=== PATIENT | female | born 1930 | race African-American/Black ===

== ENCOUNTER 2018-06-10 15:00 | Inpatient (IN) | payer MEDICARE ==
[~2018-06-10] VITALS: Ht 157.5 cm; Wt 68.0 kg
[2018-06-10] MEDS ORDERED: IV NORMAL SALINE 500ML BAG 500 ML IV SCH (16:00)
[2018-06-10 16:17] LABS: BILIRUBIN,URINE NEGATIVE (NEG); CLARITY,URINE CLOUDY; COLOR,URINE YELLOW; NITRITE,URINE POSITIVE (NEG); PROTEIN,URINE >=300 mg/dL (NEG-TRACE)
--- NOTE | 2018-06-10 16:31 | EKG ---
[facility] [address] [place] [address] Test Date: 2018-06-10 Test Time: 16:11:44 Pat Name: GAYATHRI ZHANG Department: Room: Gender: F Compliance Auditor: : [id number] Requested By: TONIA COLMENARES Order Number: [id number] Reading MD: Gareth Li MD Measurements Intervals [place] Rate: 73 P: 21 MI: 172 QRS: -4 QRSD: 80 T: 6 QT: 374 QTc: 416 Interpretive Statements SINUS RHYTHM Electronically Signed On 06-14-2018 10:26:11 GUEST [employer]ATIONS [employer]OCIATE by Gareth Li MD
[2018-06-10 16:33] LABS: BASO # 0.1 x10^3/uL (0.0-0.2); BASO % 1 % (0-3); EOS % 0 % (0-3); HEMATOCRIT 40.3 % (36.0-47.0); HEMOGLOBIN 13.4 g/dL (12.0-15.5); LYMPH % 13 % (24-48); MEAN CORPUSCULAR HEMOGLOBIN 29 pg (25-35); MEAN CORPUSCULAR HGB CONC 33 g/dL (31-37); MEAN CORPUSCULAR VOLUME 86 fL (79-100); MONO # 0.6 x10^3/uL (0.0-1.1); MONO % 8 % (0-9); NEUT # 6.1 x10^3uL (1.8-7.7); NEUT % 79 % (31-73); PLATELET COUNT 522 x10^3/uL (140-400); RED BLOOD COUNT 4.69 x10^6/uL (3.50-5.40); RED CELL DISTRIBUTION WIDTH 14.9 % (11.5-14.5); WHITE BLOOD COUNT 7.8 x10^3/uL (4.0-11.0)
[2018-06-10 16:43] LABS: BACTERIA,URINE MANY /HPF (0-FEW); SQUAMOUS EPITHELIAL CELL,UR FEW /LPF; WBC,URINE TNTC /HPF (0-4); YEAST,URINE PRESENT /HPF
[2018-06-10 16:51] LABS: CALCIUM 10.1 mg/dL (8.5-10.1); GFR 63.3; POTASSIUM 4.4 mmol/L (3.5-5.1)
[2018-06-10 16:55] LABS: ALBUMIN 2.6 g/dL (3.4-5.0); ALBUMIN/GLOBULIN RATIO 0.5 (1.0-1.7); MAGNESIUM 1.9 mg/dL (1.8-2.4); TOTAL BILIRUBIN 0.6 mg/dL (0.2-1.0); TOTAL PROTEIN 7.6 g/dL (6.4-8.2)
[2018-06-10] MEDS ORDERED: ACETAMINOPHEN 325 MG TABLET. PO ONE ×2 (17:45)
--- NOTE | 2018-06-10 18:28 | RAD ---
CT head without contrast TECHNIQUE: [address] imaging skull base to vertex. PQRS statement: CT scans at this facility use dose reduction including either automated exposure control, iterative reconstructions, and /or weight based radiation dosing via mA and kV modification when appropriate to reduce radiation dose to as low as reasonably achievable. HISTORY: Fall, head injury. FINDINGS: The exam is motion degraded of both the original as well as repeat acquisition which may decrease sensitivity to detect subtle abnormalities including small hemorrhages or masses. In light of this no intracranial hemorrhage, mass, hydrocephalus or infarction is evident. There is mild generalized brain atrophy. Imaged orbits, mastoids, paranasal sinuses and bones are unremarkable. IMPRESSION: Motion degraded exam as described above. No acute abnormality evident. Electronically signed by: Matthew Freeman MD (06/10/2018 6:23 PM) [facility]
[2018-06-10] MEDS: IV NORMAL SALINE 1000ML BAG 1,000 ML IV SCH (18:29)
--- NOTE | 2018-06-10 18:29 | PHYS DOC ---
Past Medical History Past Medical History: No Pertinent History Past Surgical History: No Surgical History Alcohol Use: None Drug Use: None Adult General Chief Complaint Chief Complaint: WEAKNESS/GENERALIZED HPI HPI Patient is an 88-year-old female who presents with chief complaint of altered mental status. Patient was at home when she tried to stand up off couch and became very weak and fell. Patient reportedly had struck her head but had no loss of consciousness. Family is concerned because they're stating that last night patient was normal but today she is very confused. She does report to some right knee pain. She denies any chest pain or abdominal pain. Patient reportedly has had no vomiting or diarrhea. Review of Systems Review of Systems Constitutional: Denies fever or chills [] Respiratory: Denies cough or shortness of breath [] Cardiovascular: No additional information not addressed in HPI [] GI: Denies abdominal pain, nausea, vomiting, bloody stools or diarrhea [] Musculoskeletal: Positive right knee pain [] Neurologic: Denies headache. Positive mental status changes. [] All other systems were reviewed and found to be within normal limits, except as documented in this note. Current Medications Current Medications Current Medications Medications (Trade) Dose Ordered Sig/Nik Start Time Stop Time Status Last Admin Dose Admin Acetaminophen (Tylenol) 650 mg 1X ONCE 06/10/18 17:45 06/10/18 17:46 UNV Levofloxacin (Levaquin) 500 mg 1X ONCE 06/10/18 17:30 06/10/18 17:31 DC 06/10/18 17:51 500 MG Sodium Chloride 500 ml @ 500 mls/hr Q1H 06/10/18 16:00 06/10/18 17:52 DC 06/10/18 17:51 500 MLS/HR Allergies Allergies Allergies Coded Allergies Type Severity Reaction Last Updated Verified Penicillins Allergy Intermediate 06/10/18 Yes Physical Exam Physical Exam Constitutional: Well developed, well nourished, no acute distress, non-toxic appearance. [] HENT: Normocephalic, atraumatic, bilateral external ears normal, oropharynx moist, no oral exudates, nose normal. [] Eyes: PERRLA, EOMI, conjunctiva normal, no discharge. [] Neck: Normal range of motion, no tenderness, supple, no stridor. [] Cardiovascular: Regular rate and rhythm [] Lungs & Thorax: Bilateral breath sounds clear to auscultation [] Abdomen: Bowel sounds normal, soft, no tenderness. [] Skin: Warm, dry, no erythema, no rash. [] Extremities: No cyanosis, no clubbing, ROM intact. Patient does complain of tenderness to palpation diffusely around the right knee. Patient does have normal range of motion however. [] Neurologic: Awake and alert, no focal deficits noted. [] Current Patient Data Vital Signs Vital Signs Date Time Temp Pulse Resp B/P (MAP) Pulse Ox O2 Delivery O2 Flow Rate FiO2 06/10/18 15:15 98.2 86 20 133/56 (81) 100 Room Air 98.2 Lab Values Laboratory Tests Test 06/10/18 15:55 06/10/18 16:18 Urine Collection Type Unknown Urine Color Yellow Urine Clarity Cloudy Urine pH 6.0 Urine Specific [place] 1.015 Urine Protein >=300 mg/dL (NEG-TRACE) Urine Glucose (UA) Negative mg/dL (NEG) Urine Ketones (Stick) 15 mg/dL (NEG) Urine Blood Large (NEG) Urine Nitrite Positive (NEG) Urine Bilirubin Negative (NEG) Urine Urobilinogen Dipstick 1.0 mg/dL (0.2 mg/dL) Urine Leukocyte Esterase Large (NEG) Urine RBC 11-20 /HPF (0-2) Urine WBC Tntc /HPF (0-4) Urine Squamous Epithelial Cells Few /LPF Urine Bacteria Many /HPF (0-FEW) Urine Yeast Present /HPF White Blood Count 7.8 x10^3/uL (4.0-11.0) Red Blood Count 4.69 x10^6/uL (3.50-5.40) Hemoglobin 13.4 g/dL (12.0-15.5) Hematocrit 40.3 % (36.0-47.0) Mean Corpuscular Volume 86 fL (79-100) Mean Corpuscular Hemoglobin 29 pg (25-35) Mean Corpuscular Hemoglobin Concent 33 g/dL (31-37) Red Cell Distribution Width 14.9 % (11.5-14.5) H Platelet Count 522 x10^3/uL (140-400) H Neutrophils (%) (Auto) 79 % (31-73) H Lymphocytes (%) (Auto) 13 % (24-48) L Monocytes (%) (Auto) 8 % (0-9) Eosinophils (%) (Auto) 0 % (0-3) Basophils (%) (Auto) 1 % (0-3) Neutrophils # (Auto) 6.1 x10^3uL (1.8-7.7) Lymphocytes # (Auto) 1.0 x10^3/uL (1.0-4.8) Monocytes # (Auto) 0.6 x10^3/uL (0.0-1.1) Eosinophils # (Auto) 0.0 x10^3/uL (0.0-0.7) Basophils # (Auto) 0.1 x10^3/uL (0.0-0.2) Sodium Level 134 mmol/L (136-145) L Potassium Level 4.4 mmol/L (3.5-5.1) Chloride Level 98 mmol/L (98-107) Carbon Dioxide Level 24 mmol/L (21-32) Anion Gap 12 (6-14) Blood Urea Nitrogen 16 mg/dL (7-20) Creatinine 1.0 mg/dL (0.6-1.0) Estimated GFR (Cockcroft-Gault) 63.3 BUN/Creatinine Ratio 16 (6-20) Glucose Level 180 mg/dL (70-99) H Calcium Level 10.1 mg/dL (8.5-10.1) Magnesium Level 1.9 mg/dL (1.8-2.4) Total Bilirubin 0.6 mg/dL (0.2-1.0) Aspartate Amino Transferase (AST) 13 U/L (15-37) L Alanine Aminotransferase (ALT) 7 U/L (14-59) L Alkaline Phosphatase 120 U/L (46-116) H Troponin I Quantitative < 0.017 ng/mL (0.000-0.055) Total Protein 7.6 g/dL (6.4-8.2) Albumin 2.6 g/dL (3.4-5.0) L Albumin/Globulin Ratio 0.5 (1.0-1.7) L Laboratory Tests 06/10/18 16:18 Laboratory Tests 06/10/18 16:18 EKG EKG [] Radiology/Procedures Radiology/Procedures [] Course & Med Decision Making Course & Med Decision Making Pertinent Labs and Imaging studies reviewed. (See chart for details) [] Dragon Disclaimer Dragon Disclaimer This electronic medical record was generated, in whole or in part, using a voice recognition dictation system. Departure Departure Impression: Primary Impression: Altered mental status Additional Impression: UTI (urinary tract infection) Disposition: 09 ADMITTED INPATIENT Admitting Physician: Other Condition: IMPROVED (Dr. Hall) Referrals: UNKNOWN PCP NAME (PCP) Problem Qualifiers Primary Impression: Altered mental status Altered mental status type: disorientation Qualified Codes: R41.0 - Disorientation, unspecified Additional Impression: UTI (urinary tract infection) Urinary tract infection type: site unspecified Hematuria presence: with hematuria Qualified Codes: N39.0 - Urinary tract infection, site not specified ; R31.9 - Hematuria, unspecified TONIA COLMENARES Jr. DO Jun 10, 2018 18:29
[2018-06-10 20:00] VITALS: BP 137/82
[2018-06-10] MEDS: SENNOSIDES/DOCUSATE 8.6/50MG TABLET. PO SCH ×2 (21:00→21:31)
[2018-06-10] MEDS ORDERED: MAGNESIUM HYDROXIDE 2,400 MG/30 ML ORAL.SUSP. PO PRN (21:00)
[2018-06-10] MEDS ORDERED: ONDANSETRON PF 4 MG/2 ML VIAL. IV PRN (21:00)
[2018-06-10] MEDS ORDERED: DEXTROSE 50% 25 GM / 50ML DISP.SYRIN. IV PRN (21:30)
[2018-06-10] MEDS: IV RINGERS,LACTATED 1000ML 1,000 ML IV SCH (21:31)
--- NOTE | 2018-06-10 21:39 | NUR ---
pt. spit out stool softener this evening. Was unable to understand indications. Addendum: 06/11/18 at 0035 by TESSY STRATTON RN Pt.'s son was educated on stool softener and indications, side effects.
[2018-06-10 23:00] VITALS: BP 108/73
[2018-06-11] VITALS (12 sets, daily range): BP systolic 100–135; BP diastolic 51–80
--- NOTE | 2018-06-11 00:35 | NUR ---
The patient, GAYATHRI ZHANG, 88 y/o, F admitted by SANDI EVANGELISTA MD, arrived on unit at 1999 via gurney by JAQUELIN Ribeiro. Family at bedside. Pt. arrived with about 10 blankets on her. She had stated she was cold. Pt. A&Ox2 (person, place). She repeats herself a lot. Skin very dry, especially her feet. VSS. Bed in lowest position, call light within reach. Son and granddaughter will stay the night. Will continue to monitor.
[2018-06-11] MEDS ORDERED: ACETAMINOPHEN 325 MG TABLET. PO PRN (01:00)
--- NOTE | 2018-06-11 03:05 | RAD ---
PORTABLE CHEST 1V Clinical History: Technique: AP view of the chest was obtained at 06/10/2018 3:33 PM. Comparison: None. Findings: The cardiomediastinal silhouette is normal. The pulmonary vasculature is normal. The lungs and pleural margins are clear. There is an old massive right rotator cuff tear. Impression: No evidence of an acute cardiopulmonary process. Electronically signed by: Osvaldo Zheng III, MD (06/11/2018 3:00 AM) [facility]
--- NOTE | 2018-06-11 03:17 | RAD ---
3 views right knee HISTORY: Pain status post fall AP lateral oblique views right knee There is marginal spurring of all 3 compartments. There is no lytic destructive changes. IMPRESSION: Moderate degenerative changes. No acute findings. Electronically signed by: Osvaldo Zheng III, MD (06/11/2018 3:12 AM) [facility]
--- NOTE | 2018-06-11 04:01 | NUR ---
1999- Tried to get pt. up to commode. Pt. needed 3 people to help her up. Was unsteady on her feet.
[2018-06-11] MEDS: IV NORMAL SALINE 1000ML BAG 1,000 ML IV SCH ×2 (04:29→11:34)
--- NOTE | 2018-06-11 04:42 | NUR ---
0100- Pt.'s granddaughter worried about grandmother. This nurse explained what has been done for patient at this time. Pt. started crying saying "she's the only grandmother I have left." Granddaughter was comforted. Family was updated on head CT results (negative). Will continue to monitor.
[2018-06-11 05:01] LABS: BASO # 0.1 x10^3/uL (0.0-0.2); BASO % 1 % (0-3); EOS % 0 % (0-3); HEMATOCRIT 36.9 % (36.0-47.0); LYMPH % 13 % (24-48); MEAN CORPUSCULAR HEMOGLOBIN 28 pg (25-35); MEAN CORPUSCULAR HGB CONC 33 g/dL (31-37); MEAN CORPUSCULAR VOLUME 86 fL (79-100); MONO # 0.8 x10^3/uL (0.0-1.1); MONO % 10 % (0-9); NEUT # 6.1 x10^3uL (1.8-7.7); NEUT % 77 % (31-73); PLATELET COUNT 463 x10^3/uL (140-400); RED BLOOD COUNT 4.27 x10^6/uL (3.50-5.40); RED CELL DISTRIBUTION WIDTH 14.7 % (11.5-14.5)
[2018-06-11 05:17] LABS: CALCIUM 9.5 mg/dL (8.5-10.1); CREATININE 1.1 mg/dL (0.6-1.0); GFR 56.7; POTASSIUM 3.7 mmol/L (3.5-5.1)
[2018-06-11] MEDS ORDERED: KETOROLAC 15 MG/ML VIAL. IV PRN (05:30)
[2018-06-11] MEDS: IV RINGERS,LACTATED 1000ML 1,000 ML IV SCH ×2 (06:05→17:27)
--- NOTE | 2018-06-11 06:54 | NUR ---
Pt. will be feed assist ADA diet.
[2018-06-11] MEDS: INSULIN LISPRO 300 UNITS/3 ML INSULN.PEN. SQ SCH ×3 (08:00→17:00)
[2018-06-11] MEDS: SENNOSIDES/DOCUSATE 8.6/50MG TABLET. PO SCH ×2 (09:00→20:39)
[2018-06-11] MEDS: CIPROFLOXACIN 200MG PREMIX 100 ML IV SCH ×2 (09:43→21:00)
--- NOTE | 2018-06-11 09:53 | PDOC1 ---
History and Physical Date of Admission Date of Admission DATE: 06/11/18 TIME: 09:51 Identification/Chief Complaint Chief Complaint seen in er 88-year-old female who presented with chief complaint of altered mental status. Patient was at home when she tried to stand up off couch and became very weak and fell. Patient reportedly had struck her head but had no loss of consciousness. she has lost vision since admit according to her son Family is concerned last night 06/10 patient was normal but today she is very confused. cannot focus her thoughts well, MRI HEAD ORDERED STAT, TRANSFERRED TO ICU JOSE She does report to some right knee pain. She denies any chest pain or abdominal pain. Past Medical History Past Medical History Past Medical History Past Medical History: No Pertinent History Past Surgical History: No Surgical History Alcohol Use: None Drug Use: None FAMILY HX HYPERLIPIDEMIA Family History Family History: Hypertension Social History Smoke: No ALCOHOL: none Drugs: None Current Problem List Problem List Problems Medical Problems: (1) Altered mental status Status: Acute (2) UTI (urinary tract infection) Status: Acute Current Medications Current Medications Current Medications Sodium Chloride 500 ml @ 500 mls/hr Q1H IV Last administered on 06/10/18at 17: 51; Start 06/10/18 at 16:00; Stop 06/10/18 at 17:52; Status DC Levofloxacin (Levaquin) 500 mg 1X ONCE PO Last administered on 06/10/18at 17:51 ; Start 06/10/18 at 17:30; Stop 06/10/18 at 17:31; Status DC Acetaminophen (Tylenol) 650 mg 1X ONCE PO Last administered on 06/10/18at 17:51 ; Start 06/10/18 at 17:45; Stop 06/10/18 at 17:46; Status DC Acetaminophen (Tylenol) 650 mg 1X ONCE PO ; Start 06/10/18 at 17:45; Stop 06/10 at 17:46; Status UNV Sodium Chloride 1,000 ml @ 100 mls/hr Q10H IV ; Start 06/10/18 at 18:29; Stop 06/11/18 at 18:28 Ringer's Solution 1,000 ml @ 100 mls/hr Q10H IV Last administered on at 06:05; Start 06/10/18 at 21:00 Ondansetron HCl (Zofran) 4 mg PRN Q6HRS PRN IV NAUSEA/VOMITING; Start 06/10/18 at 21:00 Senna/Docusate Sodium (Senna Plus) 1 tab BID PO ; Start 06/10/18 at 21:00 Magnesium Hydroxide (Milk Of Magnesia) 2,400 mg PRN Q12HR PRN PO CONSTIPATION; Start 06/10/18 at 21:00 Ciprofloxacin/ Dextrose 100 ml @ 100 mls/hr Q12HR IV Last administered on 06/11at 09:43; Start 06/11/18 at 09:00 Insulin Human Lispro (HumaLOG) 0-5 UNITS TIDWMEALS SQ ; Start 06/11/18 at 08:00 Dextrose (Dextrose 50%-Water Syringe) 12.5 gm PRN Q15MIN PRN IV SEE COMMENTS; Start 06/10/18 at 21:30 Acetaminophen (Tylenol) 650 mg PRN Q6HRS PRN PO PAIN; Start 06/11/18 at 01:00 Ketorolac Tromethamine (Toradol 15mg Vial) 15 mg PRN Q8HRS PRN IV PAIN Last administered on 06/11/18at 06:05; Start 06/11/18 at 05:30; Stop 06/16/18 at 05:29 Active Scripts Active Reported No Known Medications Prior To Admisstion (Info) Each 1 Each MC 1X Allergies Allergies: Coded Allergies: Penicillins (Verified Allergy, Intermediate, 06/10/18) ROS Review of System Review of Systems Review of Systems Constitutional: Denies fever or chills [] Respiratory: Denies cough or shortness of breath [] Cardiovascular: No additional information not addressed in HPI [] GI: Denies abdominal pain, nausea, vomiting, bloody stools or diarrhea [] Musculoskeletal: Positive right knee pain [] Neurologic: Denies headache. Positive mental status changes. IN ER HAVE NOT RESOLVED NOW HAS VISION LOSS [] 14 pt systems were reviewed and found to be within normal limits, except as documented Eyes: Yes Decreased vision Hematological and Lymphatic: No: Bleeding Problems, Blood Clots, Blood Transfusions, Brusing, Night Sweats, Pallor, Swollen Lymph Nodes, Other Gastrointestinal: No Nausea, No Vomiting, No Abdominal Pain, No Diarrhea, No Constipation, No Melena, No Hematochezia, No Other Neurological: Yes Confusion, Yes Gait Disturbance Physical Exam Physical Exam Physical Exam Physical Exam Constitutional: Well developed, well nourished, no acute distress, non-toxic appearance. [] HENT: Normocephalic, atraumatic, bilateral external ears normal, oropharynx moist, no oral exudates, nose normal. [] Eyes: PERRLA, EOMI, conjunctiva normal, no discharge. [] Neck: Normal range of motion, no tenderness, supple, no stridor. [] Cardiovascular: Regular rate and rhythm [] Lungs & Thorax: Bilateral breath sounds clear to auscultation [] Abdomen: Bowel sounds normal, soft, no tenderness. [] Skin: Warm, dry, no erythema, no rash. [] Extremities: No cyanosis, no clubbing, ROM intact. Patient does complain of tenderness to palpation diffusely around the right knee. [] Neurologic: Awake and alert, no focal deficits noted. [] Breasts: Not examined Abdomen: Soft Neuro: Normal speech, Cranial nerves 3-12 NL Vitals Vitals Vital Signs Date Time Temp Pulse Resp B/P (MAP) Pulse Ox O2 Delivery O2 Flow Rate FiO2 06/11/18 07:00 97.9 99 14 120/75 (90) 96 Room Air 97.9 Labs Labs Laboratory Tests Test 06/10/18 15:55 06/10/18 16:18 06/10/18 21:57 06/11/18 04:20 Urine Collection Type Unknown Urine Color Yellow Urine Clarity Cloudy Urine pH 6.0 Urine Specific [place] 1.015 Urine Protein >=300 mg/dL (NEG-TRACE) Urine Glucose (UA) Negative mg/dL (NEG) Urine Ketones (Stick) 15 mg/dL (NEG) Urine Blood Large (NEG) Urine Nitrite Positive (NEG) Urine Bilirubin Negative (NEG) Urine Urobilinogen Dipstick 1.0 mg/dL (0.2 mg/dL) Urine Leukocyte Esterase Large (NEG) Urine RBC 11-20 /HPF (0-2) Urine WBC Tntc /HPF (0-4) Urine Squamous Epithelial Cells Few /LPF Urine Bacteria Many /HPF (0-FEW) Urine Yeast Present /HPF White Blood Count 7.8 x10^3/uL (4.0-11.0) 8.0 x10^3/uL (4.0-11.0) Red Blood Count 4.69 x10^6/uL (3.50-5.40) 4.27 x10^6/uL (3.50-5.40) Hemoglobin 13.4 g/dL (12.0-15.5) 12.0 g/dL (12.0-15.5) Hematocrit 40.3 % (36.0-47.0) 36.9 % (36.0-47.0) Mean Corpuscular Volume 86 fL (79-100) 86 fL (79-100) Mean Corpuscular Hemoglobin 29 pg (25-35) 28 pg (25-35) Mean Corpuscular Hemoglobin Concent 33 g/dL (31-37) 33 g/dL (31-37) Red Cell Distribution Width 14.9 % (11.5-14.5) 14.7 % (11.5-14.5) Platelet Count 522 x10^3/uL (140-400) 463 x10^3/uL (140-400) Neutrophils (%) (Auto) 79 % (31-73) 77 % (31-73) Lymphocytes (%) (Auto) 13 % (24-48) 13 % (24-48) Monocytes (%) (Auto) 8 % (0-9) 10 % (0-9) Eosinophils (%) (Auto) 0 % (0-3) 0 % (0-3) Basophils (%) (Auto) 1 % (0-3) 1 % (0-3) Neutrophils # (Auto) 6.1 x10^3uL (1.8-7.7) 6.1 x10^3uL (1.8-7.7) Lymphocytes # (Auto) 1.0 x10^3/uL (1.0-4.8) 1.0 x10^3/uL (1.0-4.8) Monocytes # (Auto) 0.6 x10^3/uL (0.0-1.1) 0.8 x10^3/uL (0.0-1.1) Eosinophils # (Auto) 0.0 x10^3/uL (0.0-0.7) 0.0 x10^3/uL (0.0-0.7) Basophils # (Auto) 0.1 x10^3/uL (0.0-0.2) 0.1 x10^3/uL (0.0-0.2) Sodium Level 134 mmol/L (136-145) 136 mmol/L (136-145) Potassium Level 4.4 mmol/L (3.5-5.1) 3.7 mmol/L (3.5-5.1) Chloride Level 98 mmol/L (98-107) 100 mmol/L (98-107) Carbon Dioxide Level 24 mmol/L (21-32) 20 mmol/L (21-32) Anion Gap 12 (6-14) 16 (6-14) Blood Urea Nitrogen 16 mg/dL (7-20) 14 mg/dL (7-20) Creatinine 1.0 mg/dL (0.6-1.0) 1.1 mg/dL (0.6-1.0) Estimated GFR (Cockcroft-Gault) 63.3 56.7 BUN/Creatinine Ratio 16 (6-20) Glucose Level 180 mg/dL (70-99) 163 mg/dL (70-99) Calcium Level 10.1 mg/dL (8.5-10.1) 9.5 mg/dL (8.5-10.1) Magnesium Level 1.9 mg/dL (1.8-2.4) Total Bilirubin 0.6 mg/dL (0.2-1.0) Aspartate Amino Transf (AST/SGOT) 13 U/L (15-37) Alanine Aminotransferase (ALT/SGPT) 7 U/L (14-59) Alkaline Phosphatase 120 U/L (46-116) Troponin I Quantitative < 0.017 ng/mL (0.000-0.055) Total Protein 7.6 g/dL (6.4-8.2) Albumin 2.6 g/dL (3.4-5.0) Albumin/Globulin Ratio 0.5 (1.0-1.7) Glucose (Fingerstick) 143 mg/dL (70-99) Test 06/11/18 09:00 Glucose (Fingerstick) 184 mg/dL (70-99) Laboratory Tests Test 06/10/18 15:55 06/10/18 16:18 06/10/18 21:57 06/11/18 04:20 Urine Collection Type Unknown Urine Color Yellow Urine Clarity Cloudy Urine pH 6.0 Urine Specific [place] 1.015 Urine Protein >=300 mg/dL (NEG-TRACE) Urine Glucose (UA) Negative mg/dL (NEG) Urine Ketones (Stick) 15 mg/dL (NEG) Urine Blood Large (NEG) Urine Nitrite Positive (NEG) Urine Bilirubin Negative (NEG) Urine Urobilinogen Dipstick 1.0 mg/dL (0.2 mg/dL) Urine Leukocyte Esterase Large (NEG) Urine RBC 11-20 /HPF (0-2) Urine WBC Tntc /HPF (0-4) Urine Squamous Epithelial Cells Few /LPF Urine Bacteria Many /HPF (0-FEW) Urine Yeast Present /HPF White Blood Count 7.8 x10^3/uL (4.0-11.0) 8.0 x10^3/uL (4.0-11.0) Red Blood Count 4.69 x10^6/uL (3.50-5.40) 4.27 x10^6/uL (3.50-5.40) Hemoglobin 13.4 g/dL (12.0-15.5) 12.0 g/dL (12.0-15.5) Hematocrit 40.3 % (36.0-47.0) 36.9 % (36.0-47.0) Mean Corpuscular Volume 86 fL (79-100) 86 fL (79-100) Mean Corpuscular Hemoglobin 29 pg (25-35) 28 pg (25-35) Mean Corpuscular Hemoglobin Concent 33 g/dL (31-37) 33 g/dL (31-37) Red Cell Distribution Width 14.9 % (11.5-14.5) 14.7 % (11.5-14.5) Platelet Count 522 x10^3/uL (140-400) 463 x10^3/uL (140-400) Neutrophils (%) (Auto) 79 % (31-73) 77 % (31-73) Lymphocytes (%) (Auto) 13 % (24-48) 13 % (24-48) Monocytes (%) (Auto) 8 % (0-9) 10 % (0-9) Eosinophils (%) (Auto) 0 % (0-3) 0 % (0-3) Basophils (%) (Auto) 1 % (0-3) 1 % (0-3) Neutrophils # (Auto) 6.1 x10^3uL (1.8-7.7) 6.1 x10^3uL (1.8-7.7) Lymphocytes # (Auto) 1.0 x10^3/uL (1.0-4.8) 1.0 x10^3/uL (1.0-4.8) Monocytes # (Auto) 0.6 x10^3/uL (0.0-1.1) 0.8 x10^3/uL (0.0-1.1) Eosinophils # (Auto) 0.0 x10^3/uL (0.0-0.7) 0.0 x10^3/uL (0.0-0.7) Basophils # (Auto) 0.1 x10^3/uL (0.0-0.2) 0.1 x10^3/uL (0.0-0.2) Sodium Level 134 mmol/L (136-145) 136 mmol/L (136-145) Potassium Level 4.4 mmol/L (3.5-5.1) 3.7 mmol/L (3.5-5.1) Chloride Level 98 mmol/L (98-107) 100 mmol/L (98-107) Carbon Dioxide Level 24 mmol/L (21-32) 20 mmol/L (21-32) Anion Gap 12 (6-14) 16 (6-14) Blood Urea Nitrogen 16 mg/dL (7-20) 14 mg/dL (7-20) Creatinine 1.0 mg/dL (0.6-1.0) 1.1 mg/dL (0.6-1.0) Estimated GFR (Cockcroft-Gault) 63.3 56.7 BUN/Creatinine Ratio 16 (6-20) Glucose Level 180 mg/dL (70-99) 163 mg/dL (70-99) Calcium Level 10.1 mg/dL (8.5-10.1) 9.5 mg/dL (8.5-10.1) Magnesium Level 1.9 mg/dL (1.8-2.4) Total Bilirubin 0.6 mg/dL (0.2-1.0) Aspartate Amino Transf (AST/SGOT) 13 U/L (15-37) Alanine Aminotransferase (ALT/SGPT) 7 U/L (14-59) Alkaline Phosphatase 120 U/L (46-116) Troponin I Quantitative < 0.017 ng/mL (0.000-0.055) Total Protein 7.6 g/dL (6.4-8.2) Albumin 2.6 g/dL (3.4-5.0) Albumin/Globulin Ratio 0.5 (1.0-1.7) Glucose (Fingerstick) 143 mg/dL (70-99) Test 06/11/18 09:00 Glucose (Fingerstick) 184 mg/dL (70-99) Images Images PROCEDURE: CT HEAD WO CONTRAST CT head without contrast TECHNIQUE: [address] imaging skull base to vertex. PQRS statement: CT scans at this facility use dose reduction including either automated exposure control, iterative reconstructions, and /or weight based radiation dosing via mA and kV modification when appropriate to reduce radiation dose to as low as reasonably achievable. HISTORY: Fall, head injury. FINDINGS: The exam is motion degraded of both the original as well as repeat acquisition which may decrease sensitivity to detect subtle abnormalities including small hemorrhages or masses. In light of this no intracranial hemorrhage, mass, hydrocephalus or infarction is evident. There is mild generalized brain atrophy. Imaged orbits, mastoids, paranasal sinuses and bones are unremarkable. IMPRESSION: Motion degraded exam as described above. No acute abnormality evident. Electronically signed by: Matthew Freeman MD (06/10/2018 6:23 PM) [facility] DICTATED and SIGNED BY: MATTHEW FREEMAN MD DATE: 06/10/18 182 VTE Prophylaxis Ordered VTE Prophylaxis Devices: Yes VTE Pharmacological Prophylaxi: Contraindicated Assessment/Plan Assessment/Plan Impression: Altered mental status UTI (urinary tract infection) fall risk right knee pain acute metabolic encephalopathy ACUTE HEAD INJURY WITH VISION LOSS plan ADMITTED iv antibiotics neurochecks q 4 hrs neurology consult STAT D/W DR GONZALEZ BY PHONE AT 13:24 tele TRANSFER TO ICU STAT SCD'S 40 MIN CC TIME PAUL CHANG MD Jun 11, 2018 09:52
--- NOTE | 2018-06-11 13:09 | NUR ---
SW following for discharge planning. Discussed with RN, pt is from home with family. RN advised pt's family cannot find/ don't know pt's SSN and are trying to find it. SW awaiting PT/OT. Pt is self pay. RN notified. SW will continue to follow.
--- NOTE | 2018-06-11 14:45 | NUR ---
Taken to MRI as an ICU pt. IV x 1 patent. Pt restless and would not be verbally calmed down so unable to do MRI, Placed call to Dr Laurent. Then Ativan 0.5mg given IV and pt still restless and would not cooperate with alarm service technician . Taken to ICU and baseline VSs established. Called Dr Laurent back. Still wants MRI attempted. Pt back to MRI with Ativan 2mg IV with better cooperation and scan completed. Back to ICU w/o diff. VSS Son and granddaughter in waiting room
--- NOTE | 2018-06-11 15:00 | NUR ---
Patient arrived on the unit from MRI at 1500, she was very verbal, asking for her son Mando. She was A/O x2, she stated that she could see me and was able to tell me that my shirt was red. VS stable, Heard cath placed,will continue to monitor.
--- NOTE | 2018-06-11 17:06 | RAD ---
EXAM: Brain MRI without contrast. HISTORY: Vision loss. TECHNIQUE: Multiplanar, multisequence magnetic resonance imaging of the brain was performed without contrast. COMPARISON: Head CT dated 06/10/2018. FINDINGS: There is restricted diffusion within the right parietal lobe and lateral occipital and posterior temporal lobe consistent with acute infarction. There is also a small acute infarct within the right cerebellum. There is no convincing hemorrhage. There is no mass effect or midline shift. There is no hydrocephalus. There are a few nonspecific focal areas of signal change within the cerebral white matter and elvin, likely due to chronic small vessel disease. There is evidence of lens surgery. There are small maxillary sinuses, likely hypoplastic or due to the sequela of chronic sinusitis. The mastoid air cells are clear. There are normal flow voids within the cerebral vessels. There is slight increased extra-axial space within the right middle cranial fossa, likely due to atrophy or a small arachnoid cyst. IMPRESSION: 1. 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 2. Acute infarct within the right cerebellum. 3. Nonspecific signal change within the cerebral white matter and elvin, likely due to chronic small vessel disease. 4. Right temporal volume loss or small middle cranial fossa arachnoid cyst. Critical findings were discussed with Janice, the nurse caring for the patient, at 1655 hours on 06/11/2018. Electronically signed by: Bia Hooks MD (06/11/2018 5:02 PM) [id number]
[2018-06-11] MEDS: ASPIRIN RECTAL 300 MG SUPP. PR SCH (17:28)
--- NOTE | 2018-06-11 18:29 | PDOC2 ---
NEUROLOGY CONSULT Date of Admission Date of Admission DATE: 06/11/18 TIME: 18:01 Reason for Consult Reason for Consult: IMPRESSION: Subacute large right hemisphere infarct. Generalized weakness since 06/11/18. Metabolic encephalopathy. Lethargy. Confusion. Fall. DM. HTN. UTI. RECOMMENDATIONS/PLAN: Life support in ICU. ASA 300 mg Rectal daily. Keep good hydration. Brain MRI performed. Carotid A US + Doppler. Echo. Lab: see orders. Suggest transfer to [facility] or [facility] if there is indication for endovascular procedure, but doubted since > 24 hours. MRI w/o contrast on 06/11/18 showed large right hemisphere infarct on DWI, FLARE , and other imaging. HISTORY OF THE PRESENT ILLNESS: This is an 88-y-old AA female patent with history of HTN and DM per her son was noted MS changes by family on 06/10/18. Patient was at home when she tried to stand up off couch and became very weak and fell. Patient reportedly had struck her head but had no loss of consciousness. She was last known normal on 06/09/18 as family stated on 06/10/18 that the previous night patient was normal but she was very confused noted by family on 06/10/18. Patient was brought to the ER of [facility] with complaints of generalized weakness. Neurology was requested for consultation on 06/11/18 and further evaluation revealed a large right MCA territory infarct. PAST MEDICAL HISTORY: HTN. DM. PAST SURGERY HISTORY: No major surgery recently. ALLERGY: Penicillins (Verified Allergy, Intermediate, 06/10/18) MEDICATIONS: Refer to [facility] FAMILY HISTORY: Non contributory. SOCIAL HISTORY: Lives with her son and grand children at home. Unknown her status of smoking, drinking, and illicit drug use. REVIEW OF SYSTEMS: Constitutional: No malnutrition, weight loss, cachexia. Head: No traumatic brain or head injury. Skin: No edema, or rash. Ear: No infection. Eyes: No vision loss or color blindness. Nose: No bleeding or purulent discharges. Hearing: Hearing decrease. Neck: No injury. Breast: No history of cancer, masses,or discharges. Cardiac: HTN, HLD. Pulmonary: No COPD. GI: No GI ulcer, GI bleeding. Urinary/genital: UTI. Endocrinologic: No cousin face, craniofacial dysmorphism, polydactyly. Skeletomuscular: Generalized weakness. Neurological: see HP. Psychiatric: Denies drug use/abuse. Otherwise, not [id number] review of systems. PHYSICAL EXAMINATION: General appearance is in subacute distress. HEENT: Normocephalic and nontraumatic. Eyes, nose, ears, and throat are unremarkable. Neck is supple. No lymphadenopathy. No crepitus. Cardiovascular: S1, S2, regular rate and rhythm. Pulmonary: Mildly decreased to auscultation bilaterally. Abdomen: Bowel sounds are positive. Extremities: No rash, lesions, or edema. No restriction of range of motion NEUROLOGICAL EXAMINATION: Lethargic. Not oriented to time, place and person. PERRL. EOMI not elicited due to not able to follow commands. 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 Muscle tone: Fluctuated. Muscle strength: 4 left UE, 5 right UE. Unable to access LE accurately. DTR: 1-2 Plantar reflex: Neutral response bilaterally Gait: not able to walk. Sensory exam: Withdrawal response to pain stimuli noted in UE and LE.. Not able to access cerebellar signs. F-T-N test not performed due to not follow commands. Current Medications Current Medications Current Medications Sodium Chloride 500 ml @ 500 mls/hr Q1H IV Last administered on 06/10/18at 17: 51; Start 06/10/18 at 16:00; Stop 06/10/18 at 17:52; Status DC Levofloxacin (Levaquin) 500 mg 1X ONCE PO Last administered on 06/10/18at 17:51 ; Start 06/10/18 at 17:30; Stop 06/10/18 at 17:31; Status DC Acetaminophen (Tylenol) 650 mg 1X ONCE PO Last administered on 06/10/18at 17:51 ; Start 06/10/18 at 17:45; Stop 06/10/18 at 17:46; Status DC Acetaminophen (Tylenol) 650 mg 1X ONCE PO ; Start 06/10/18 at 17:45; Stop 06/10 at 17:46; Status UNV Sodium Chloride 1,000 ml @ 100 mls/hr Q10H IV ; Start 06/10/18 at 18:29; Stop 06/11/18 at 11:35; Status DC Ringer's Solution 1,000 ml @ 100 mls/hr Q10H IV Last administered on at 17:27; Start 06/10/18 at 21:00 Ondansetron HCl (Zofran) 4 mg PRN Q6HRS PRN IV NAUSEA/VOMITING; Start 06/10/18 at 21:00 Senna/Docusate Sodium (Senna Plus) 1 tab BID PO ; Start 06/10/18 at 21:00 Magnesium Hydroxide (Milk Of Magnesia) 2,400 mg PRN Q12HR PRN PO CONSTIPATION; Start 06/10/18 at 21:00 Ciprofloxacin/ Dextrose 100 ml @ 100 mls/hr Q12HR IV Last administered on 06/11at 09:43; Start 06/11/18 at 09:00 Insulin Human Lispro (HumaLOG) 0-5 UNITS TIDWMEALS SQ ; Start 06/11/18 at 08:00 Dextrose (Dextrose 50%-Water Syringe) 12.5 gm PRN Q15MIN PRN IV SEE COMMENTS; Start 06/10/18 at 21:30 Acetaminophen (Tylenol) 650 mg PRN Q6HRS PRN PO PAIN; Start 06/11/18 at 01:00 Ketorolac Tromethamine (Toradol 15mg Vial) 15 mg PRN Q8HRS PRN IV PAIN Last administered on 06/11/18at 06:05; Start 06/11/18 at 05:30; Stop 06/16/18 at 05:29 Lorazepam (Ativan) 0.5 mg 1X ONCE IV Last administered on 06/11/18at 14:45; Start 06/11/18 at 14:45; Stop 06/11/18 at 14:46; Status DC Lorazepam (Ativan) 2 mg 1X ONCE IV Last administered on 06/11/18at 15:45; Start 06/11/18 at 15:45; Stop 06/11/18 at 15:46; Status DC Aspirin (Aspirin) 300 mg DAILY FL Last administered on 06/11/18at 17:28; Start 06/11/18 at 17:20 Active Scripts Active Reported No Known Medications Prior To Admisstion (Info) Each 1 Each MC 1X Allergies Allergies: Allergies Coded Allergies Type Severity Reaction Last Updated Verified Penicillins Allergy Intermediate 06/10/18 Yes ROS Review of System The patient denies any associated fevers, chills, headache, ear pain, rhinorrhea , sore throat, stiff neck, productive cough, chest pain, shortness of breath, back or flank pain, abdominal pain, nausea, vomiting, diarrhea, constipation, dysuria, rash, numbness, weakness, tingling, incontinence, difficulty ambulating, or diaphoresis. Physical Exam Physical Exam General: Well developed, well nourished, no acute distress, well appearing HEENT: Pupils equally round and reactive to light, EOMI, no discharge, normal conjunctiva Neck: Supple, no nuchal rigidity, no JVD, trachea midline, no tenderness Cardiac: RRR, no murmurs, no gallops, no rubs Chest/Lungs: CTAB, no wheeze, no rhonchi, no crackles Abdomen: soft, non-distended, no guarding, no peritoneal signs, non-tender Back: No tenderness Extremities: no edema, pulses intact, non-tender,capillary refill <3 sec bilateral upper and lower extremities, Neuro: Alert and oriented x 4, no focal deficits, normal speech Vitals Vitals: Vital Signs Date Time Temp Pulse Resp B/P (MAP) Pulse Ox O2 Delivery O2 Flow Rate FiO2 06/11/18 17:00 87 23 135/62 (86) 98 Room Air 06/11/18 16:00 2.0 06/11/18 16:00 98.8 98.8 Labs Labs Laboratory Tests Test 06/10/18 15:55 06/10/18 16:18 06/10/18 21:57 06/11/18 04:20 Urine Collection Type Unknown Urine Color Yellow Urine Clarity Cloudy Urine pH 6.0 Urine Specific [place] 1.015 Urine Protein >=300 mg/dL (NEG-TRACE) Urine Glucose (UA) Negative mg/dL (NEG) Urine Ketones (Stick) 15 mg/dL (NEG) Urine Blood Large (NEG) Urine Nitrite Positive (NEG) Urine Bilirubin Negative (NEG) Urine Urobilinogen Dipstick 1.0 mg/dL (0.2 mg/dL) Urine Leukocyte Esterase Large (NEG) Urine RBC 11-20 /HPF (0-2) Urine WBC Tntc /HPF (0-4) Urine Squamous Epithelial Cells Few /LPF Urine Bacteria Many /HPF (0-FEW) Urine Yeast Present /HPF White Blood Count 7.8 x10^3/uL (4.0-11.0) 8.0 x10^3/uL (4.0-11.0) Red Blood Count 4.69 x10^6/uL (3.50-5.40) 4.27 x10^6/uL (3.50-5.40) Hemoglobin 13.4 g/dL (12.0-15.5) 12.0 g/dL (12.0-15.5) Hematocrit 40.3 % (36.0-47.0) 36.9 % (36.0-47.0) Mean Corpuscular Volume 86 fL (79-100) 86 fL (79-100) Mean Corpuscular Hemoglobin 29 pg (25-35) 28 pg (25-35) Mean Corpuscular Hemoglobin Concent 33 g/dL (31-37) 33 g/dL (31-37) Red Cell Distribution Width 14.9 % (11.5-14.5) 14.7 % (11.5-14.5) Platelet Count 522 x10^3/uL (140-400) 463 x10^3/uL (140-400) Neutrophils (%) (Auto) 79 % (31-73) 77 % (31-73) Lymphocytes (%) (Auto) 13 % (24-48) 13 % (24-48) Monocytes (%) (Auto) 8 % (0-9) 10 % (0-9) Eosinophils (%) (Auto) 0 % (0-3) 0 % (0-3) Basophils (%) (Auto) 1 % (0-3) 1 % (0-3) Neutrophils # (Auto) 6.1 x10^3uL (1.8-7.7) 6.1 x10^3uL (1.8-7.7) Lymphocytes # (Auto) 1.0 x10^3/uL (1.0-4.8) 1.0 x10^3/uL (1.0-4.8) Monocytes # (Auto) 0.6 x10^3/uL (0.0-1.1) 0.8 x10^3/uL (0.0-1.1) Eosinophils # (Auto) 0.0 x10^3/uL (0.0-0.7) 0.0 x10^3/uL (0.0-0.7) Basophils # (Auto) 0.1 x10^3/uL (0.0-0.2) 0.1 x10^3/uL (0.0-0.2) Sodium Level 134 mmol/L (136-145) 136 mmol/L (136-145) Potassium Level 4.4 mmol/L (3.5-5.1) 3.7 mmol/L (3.5-5.1) Chloride Level 98 mmol/L (98-107) 100 mmol/L (98-107) Carbon Dioxide Level 24 mmol/L (21-32) 20 mmol/L (21-32) Anion Gap 12 (6-14) 16 (6-14) Blood Urea Nitrogen 16 mg/dL (7-20) 14 mg/dL (7-20) Creatinine 1.0 mg/dL (0.6-1.0) 1.1 mg/dL (0.6-1.0) Estimated GFR (Cockcroft-Gault) 63.3 56.7 BUN/Creatinine Ratio 16 (6-20) Glucose Level 180 mg/dL (70-99) 163 mg/dL (70-99) Calcium Level 10.1 mg/dL (8.5-10.1) 9.5 mg/dL (8.5-10.1) Magnesium Level 1.9 mg/dL (1.8-2.4) Total Bilirubin 0.6 mg/dL (0.2-1.0) Aspartate Amino Transf (AST/SGOT) 13 U/L (15-37) Alanine Aminotransferase (ALT/SGPT) 7 U/L (14-59) Alkaline Phosphatase 120 U/L (46-116) Troponin I Quantitative < 0.017 ng/mL (0.000-0.055) Total Protein 7.6 g/dL (6.4-8.2) Albumin 2.6 g/dL (3.4-5.0) Albumin/Globulin Ratio 0.5 (1.0-1.7) Glucose (Fingerstick) 143 mg/dL (70-99) Thyroid Stimulating Hormone (TSH) 1.773 uIU/mL (0.358-3.74) Test 06/11/18 09:00 06/11/18 12:17 06/11/18 17:39 Glucose (Fingerstick) 184 mg/dL (70-99) 150 mg/dL (70-99) 123 mg/dL (70-99) Laboratory Tests Test 06/10/18 21:57 06/11/18 04:20 06/11/18 09:00 06/11/18 12:17 Glucose (Fingerstick) 143 mg/dL (70-99) 184 mg/dL (70-99) 150 mg/dL (70-99) White Blood Count 8.0 x10^3/uL (4.0-11.0) Red Blood Count 4.27 x10^6/uL (3.50-5.40) Hemoglobin 12.0 g/dL (12.0-15.5) Hematocrit 36.9 % (36.0-47.0) Mean Corpuscular Volume 86 fL (79-100) Mean Corpuscular Hemoglobin 28 pg (25-35) Mean Corpuscular Hemoglobin Concent 33 g/dL (31-37) Red Cell Distribution Width 14.7 % (11.5-14.5) Platelet Count 463 x10^3/uL (140-400) Neutrophils (%) (Auto) 77 % (31-73) Lymphocytes (%) (Auto) 13 % (24-48) Monocytes (%) (Auto) 10 % (0-9) Eosinophils (%) (Auto) 0 % (0-3) Basophils (%) (Auto) 1 % (0-3) Neutrophils # (Auto) 6.1 x10^3uL (1.8-7.7) Lymphocytes # (Auto) 1.0 x10^3/uL (1.0-4.8) Monocytes # (Auto) 0.8 x10^3/uL (0.0-1.1) Eosinophils # (Auto) 0.0 x10^3/uL (0.0-0.7) Basophils # (Auto) 0.1 x10^3/uL (0.0-0.2) Sodium Level 136 mmol/L (136-145) Potassium Level 3.7 mmol/L (3.5-5.1) Chloride Level 100 mmol/L (98-107) Carbon Dioxide Level 20 mmol/L (21-32) Anion Gap 16 (6-14) Blood Urea Nitrogen 14 mg/dL (7-20) Creatinine 1.1 mg/dL (0.6-1.0) Estimated GFR (Cockcroft-Gault) 56.7 Glucose Level 163 mg/dL (70-99) Calcium Level 9.5 mg/dL (8.5-10.1) Thyroid Stimulating Hormone (TSH) 1.773 uIU/mL (0.358-3.74) Test 06/11/18 17:39 Glucose (Fingerstick) 123 mg/dL (70-99) LALO GONZALEZ MD Jun 11, 2018 18:29
[2018-06-12] VITALS (15 sets, daily range): BP systolic 95–151; BP diastolic 43–75
[2018-06-12 03:04] LABS: CHOLESTEROL/HDL RATIO 3.8
[2018-06-12] MEDS: IV RINGERS,LACTATED 1000ML 1,000 ML IV SCH ×3 (04:42→19:54)
[2018-06-12 06:10] LABS: BASO % 1 % (0-3); EOS # 0.1 x10^3/uL (0.0-0.7); EOS % 2 % (0-3); HEMATOCRIT 34.8 % (36.0-47.0); HEMOGLOBIN 11.5 g/dL (12.0-15.5); LYMPH # 1.4 x10^3/uL (1.0-4.8); LYMPH % 24 % (24-48); MEAN CORPUSCULAR HEMOGLOBIN 29 pg (25-35); MEAN CORPUSCULAR HGB CONC 33 g/dL (31-37); MEAN CORPUSCULAR VOLUME 87 fL (79-100); MONO # 0.8 x10^3/uL (0.0-1.1); MONO % 15 % (0-9); NEUT # 3.4 x10^3uL (1.8-7.7); NEUT % 59 % (31-73); PLATELET COUNT 378 x10^3/uL (140-400); RED CELL DISTRIBUTION WIDTH 14.8 % (11.5-14.5); WHITE BLOOD COUNT 5.8 x10^3/uL (4.0-11.0)
[2018-06-12 06:27] LABS: CREATININE 0.8 mg/dL (0.6-1.0); GFR 81.9; MAGNESIUM 1.9 mg/dL (1.8-2.4); POTASSIUM 3.9 mmol/L (3.5-5.1)
[2018-06-12] MEDS: INSULIN LISPRO 300 UNITS/3 ML INSULN.PEN. SQ SCH ×3 (08:00→17:00)
[2018-06-12] MEDS: ASPIRIN RECTAL 300 MG SUPP. PR SCH (08:03)
[2018-06-12] MEDS: CIPROFLOXACIN 200MG PREMIX 100 ML IV SCH ×2 (08:03→19:47)
[2018-06-12] MEDS: SENNOSIDES/DOCUSATE 8.6/50MG TABLET. PO SCH ×2 (08:08→19:29)
--- NOTE | 2018-06-12 08:22 | RAD ---
Carotid ultrasound, 06/12/2018: HISTORY: CVA Duplex evaluation of the carotid arteries and neck was performed including grayscale, color-flow and spectral Doppler analysis. There is mild atherosclerotic plaquing at both carotid bifurcations. The plaques are partially calcified. The proximal internal carotid arteries are tortuous. The peak systolic velocity in the right internal carotid artery is 80 cm per sec with an end-diastolic velocity of 24 cm/s and an internal carotid to common carotid artery ratio of 1.0. The peak systolic velocity in the left internal carotid artery is 94 cm per sec with an end-diastolic velocity of 21 cm/s and an internal carotid to common carotid artery ratio 1.0. These Doppler findings suggest luminal narrowing in the 0-50 percent diameter range. Antegrade flow is present in both vertebral arteries in the neck. IMPRESSION: Mild atherosclerotic plaquing at both carotid bifurcations with underlying luminal narrowing in the 0-50 percent diameter range bilaterally. Note: Stenosis calculations for CT, MRA and conventional angiography are based upon determination of the distal ICA diameter in accordance with the NASCET methodology. Stenosis calculations for Doppler studies are derived from validated velocity criteria which are known to correlate with NASCET methodology of determining stenosis. Electronically signed by: Jeffrey Marr MD (06/12/2018 8:19 AM) [facility]
--- NOTE | 2018-06-12 10:06 | CARD ---
MR#: [id number] Date of Study: 06/12/2018 Ordering Physician: LALO GONZALEZ, Referring Physician: SANDI EVANGELISTA, Tech: Monique Powell [facility] APPROVED REPORT EXAM: Two-dimensional and M-mode echocardiogram with Doppler and color Doppler. Other Information Quality : Technically LimitedHR: 76bpm Rhythm : NSRTechnically limited study due to body habitus. INDICATION CVA/TIA 2D DIMENSIONS RVDd2.4 (2.9-3.5cm)Left Atrium(2D)3.1 (1.6-4.0cm) IVSd1.2 (0.7-1.1cm)Aortic Root(2D)2.3 (2.0-3.7cm) LVDd3.0 (3.9-5.9cm)LVOT Diameter1.7 (1.8-2.4cm) PWd0.9 (0.7-1.1cm)LVDs1.9 (2.5-4.0cm) FS (%) 37.3 %SV23.9 ml LVEF(%)68.9 (>50%) Aortic Valve AoV Peak Jose Cruz.165.2cm/sAoV VTI27.3cm AO Peak GR.10.9mmHgLVOT VTI 25.76cm AO Mean GR.3mmHgAVA (VTI)2.20cm2 Mitral Valve MV E Rzqhmwwl96.2cm/sMV DECEL TELM291ln MV A Twxszqhl796.1cm/sE/A Ratio0.6 MV A [id number] TDI Lateral E' P. V6.82cm/sMedial E' P. V8.82cm/s E/Lateral E'9.0E/Medial E'6.9 Tricuspid Valve TR P. [id number]/sRAP [id number] TR Peak Gr.[id number] LEFT VENTRICLE The left ventricle cavity is small. There is borderline to mild concentric left ventricular hypertrop hy. The left ventricular systolic function is normal and the ejection fraction is within normal range . The Ejection Fraction is 55-60%. There is grossly normal LV segmental wall motion. Tissue Doppler i maging reveals mild left ventricular diastolic dysfunction. RIGHT VENTRICLE The right ventricle is normal size. There is normal right ventricular wall thickness. The right ventr icular systolic function is normal. ATRIA The left atrium size is normal. The right atrium size is normal. The interatrial septum is intact wit h no evidence for an atrial septal defect or patent foramen ovale as noted on 2-D or Doppler imaging. AORTIC VALVE The aortic valve is not well visualized. Doppler and Color Flow revealed no significant aortic regurg itation. There is no significant aortic valvular stenosis. MITRAL VALVE Moderately calcified. Not well visualized. There is no evidence of mitral valve prolapse. There is no mitral valve stenosis. Doppler and Color-flow revealed trace mitral regurgitation. TRICUSPID VALVE The tricuspid valve is normal in structure and function. Doppler and Color Flow revealed trace tricus pid regurgitation. The PA pressure was estimated at 24 mmHg. There is no tricuspid valve prolapse or vegetation. There is no tricuspid valve stenosis. PULMONIC VALVE Pulmonic valve not well visualized. GREAT VESSELS The aortic root is normal in size. The ascending aorta is normal in size. The IVC is normal in size a nd collapses >50% with inspiration. PERICARDIAL EFFUSION There is no evidence of significant pericardial effusion. Critical Notification Critical Value: No <Conclusion> The left ventricular systolic function is normal and the ejection fraction is within normal range. Th e Ejection Fraction is 55-60%. There is grossly normal LV segmental wall motion. Technically difficult study. Signed by : Gareth Li, Electronically Approved : 06/12/2018 10:05:56
--- NOTE | 2018-06-12 13:48 | NUR ---
SS following up with discharge planning. PT/OT recommended half-way unit. Pt has [employer] insurance. Pt having issues with confusion. SS attempted to contact pt's son and left a voicemail asking for return call to discuss discharge planning. SS will continue to follow up with discharge planning.
--- NOTE | 2018-06-12 14:37 | PDOC ---
PROGRESS NOTES Chief Complaint Chief Complaint CC: AMS, weakness and fall Large right hemisphere infarct. Metabolic encephalopathy Lethargy Confusion DM HTN History of Present Illness History of Present Illness Pt is an 89 y/o female who was admitted due to AMS, weakness and a fall. The pt was seen and examined the pt in the ICU. Her son and granddaughter were in the room. They are very concerned for her wellbeing. She is able to give me the year and is moving all of her extremities. She appears to have lost her eye sight. Pupils were 4mm and sluggish. I discussed the pt with her RN. She states that the pt has periods of being cognisant and other times of confusion and lethargy. I discussed with pt with Dr. Laurent. It is hard to say what deficits the pt will have at this time. We agreed to send her to the neuro floor. The pt is complaining of being cold. She received several blankets. Vitals Vitals Vital Signs Date Time Temp Pulse Resp B/P (MAP) Pulse Ox O2 Delivery O2 Flow Rate FiO2 06/12/18 12:00 98.2 63 14 95/50 (65) 100 Room Air 98.2 06/11/18 16:00 2.0 Physical Exam General: Cooperative, No acute distress Heart: Regular rate, No murmurs Lungs: Clear, Other (No wheezing or crackles) Abdomen: Normal bowel sounds, Soft, No tenderness Extremities: No clubbing, No cyanosis, No edema, Other (Moves all extremities) Skin: No rashes, No significant lesion Labs LABS Laboratory Tests Test 06/11/18 17:39 06/11/18 21:19 06/12/18 05:20 06/12/18 08:07 Glucose (Fingerstick) 123 mg/dL (70-99) 151 mg/dL (70-99) 102 mg/dL (70-99) White Blood Count 5.8 x10^3/uL (4.0-11.0) Red Blood Count 4.00 x10^6/uL (3.50-5.40) Hemoglobin 11.5 g/dL (12.0-15.5) Hematocrit 34.8 % (36.0-47.0) Mean Corpuscular Volume 87 fL (79-100) Mean Corpuscular Hemoglobin 29 pg (25-35) Mean Corpuscular Hemoglobin Concent 33 g/dL (31-37) Red Cell Distribution Width 14.8 % (11.5-14.5) Platelet Count 378 x10^3/uL (140-400) Neutrophils (%) (Auto) 59 % (31-73) Lymphocytes (%) (Auto) 24 % (24-48) Monocytes (%) (Auto) 15 % (0-9) Eosinophils (%) (Auto) 2 % (0-3) Basophils (%) (Auto) 1 % (0-3) Neutrophils # (Auto) 3.4 x10^3uL (1.8-7.7) Lymphocytes # (Auto) 1.4 x10^3/uL (1.0-4.8) Monocytes # (Auto) 0.8 x10^3/uL (0.0-1.1) Eosinophils # (Auto) 0.1 x10^3/uL (0.0-0.7) Basophils # (Auto) 0.0 x10^3/uL (0.0-0.2) Sodium Level 138 mmol/L (136-145) Potassium Level 3.9 mmol/L (3.5-5.1) Chloride Level 101 mmol/L (98-107) Carbon Dioxide Level 25 mmol/L (21-32) Anion Gap 12 (6-14) Blood Urea Nitrogen 12 mg/dL (7-20) Creatinine 0.8 mg/dL (0.6-1.0) Estimated GFR (Cockcroft-Gault) 81.9 Glucose Level 108 mg/dL (70-99) Calcium Level 9.0 mg/dL (8.5-10.1) Magnesium Level 1.9 mg/dL (1.8-2.4) Test 06/12/18 11:52 Glucose (Fingerstick) 115 mg/dL (70-99) Review of Systems Review of Systems Unable to obtain ROS due to pts confused state. Assessment and Plan Assessmemt and Plan Assessment: Large right hemisphere infarct AMS Weakness Fall Metabolic encephalopathy Lethargy Confusion DM HTN Plan: Life support in ICU Labs PT/OT ST - swallow eval Home meds Appreciate neurology input Total time with pt 31 minutes Comment Review of Relevant I have reviewed the following items maria teresa (where applicable) has been applied. Labs Laboratory Tests Test 06/10/18 15:55 06/10/18 16:18 06/10/18 21:57 06/11/18 04:20 Urine Collection Type Unknown Urine Color Yellow Urine Clarity Cloudy Urine pH 6.0 Urine Specific [place] 1.015 Urine Protein >=300 mg/dL (NEG-TRACE) Urine Glucose (UA) Negative mg/dL (NEG) Urine Ketones (Stick) 15 mg/dL (NEG) Urine Blood Large (NEG) Urine Nitrite Positive (NEG) Urine Bilirubin Negative (NEG) Urine Urobilinogen Dipstick 1.0 mg/dL (0.2 mg/dL) Urine Leukocyte Esterase Large (NEG) Urine RBC 11-20 /HPF (0-2) Urine WBC Tntc /HPF (0-4) Urine Squamous Epithelial Cells Few /LPF Urine Bacteria Many /HPF (0-FEW) Urine Yeast Present /HPF White Blood Count 7.8 x10^3/uL (4.0-11.0) 8.0 x10^3/uL (4.0-11.0) Red Blood Count 4.69 x10^6/uL (3.50-5.40) 4.27 x10^6/uL (3.50-5.40) Hemoglobin 13.4 g/dL (12.0-15.5) 12.0 g/dL (12.0-15.5) Hematocrit 40.3 % (36.0-47.0) 36.9 % (36.0-47.0) Mean Corpuscular Volume 86 fL (79-100) 86 fL (79-100) Mean Corpuscular Hemoglobin 29 pg (25-35) 28 pg (25-35) Mean Corpuscular Hemoglobin Concent 33 g/dL (31-37) 33 g/dL (31-37) Red Cell Distribution Width 14.9 % (11.5-14.5) 14.7 % (11.5-14.5) Platelet Count 522 x10^3/uL (140-400) 463 x10^3/uL (140-400) Neutrophils (%) (Auto) 79 % (31-73) 77 % (31-73) Lymphocytes (%) (Auto) 13 % (24-48) 13 % (24-48) Monocytes (%) (Auto) 8 % (0-9) 10 % (0-9) Eosinophils (%) (Auto) 0 % (0-3) 0 % (0-3) Basophils (%) (Auto) 1 % (0-3) 1 % (0-3) Neutrophils # (Auto) 6.1 x10^3uL (1.8-7.7) 6.1 x10^3uL (1.8-7.7) Lymphocytes # (Auto) 1.0 x10^3/uL (1.0-4.8) 1.0 x10^3/uL (1.0-4.8) Monocytes # (Auto) 0.6 x10^3/uL (0.0-1.1) 0.8 x10^3/uL (0.0-1.1) Eosinophils # (Auto) 0.0 x10^3/uL (0.0-0.7) 0.0 x10^3/uL (0.0-0.7) Basophils # (Auto) 0.1 x10^3/uL (0.0-0.2) 0.1 x10^3/uL (0.0-0.2) Sodium Level 134 mmol/L (136-145) 136 mmol/L (136-145) Potassium Level 4.4 mmol/L (3.5-5.1) 3.7 mmol/L (3.5-5.1) Chloride Level 98 mmol/L (98-107) 100 mmol/L (98-107) Carbon Dioxide Level 24 mmol/L (21-32) 20 mmol/L (21-32) Anion Gap 12 (6-14) 16 (6-14) Blood Urea Nitrogen 16 mg/dL (7-20) 14 mg/dL (7-20) Creatinine 1.0 mg/dL (0.6-1.0) 1.1 mg/dL (0.6-1.0) Estimated GFR (Cockcroft-Gault) 63.3 56.7 BUN/Creatinine Ratio 16 (6-20) Glucose Level 180 mg/dL (70-99) 163 mg/dL (70-99) Calcium Level 10.1 mg/dL (8.5-10.1) 9.5 mg/dL (8.5-10.1) Magnesium Level 1.9 mg/dL (1.8-2.4) Total Bilirubin 0.6 mg/dL (0.2-1.0) Aspartate Amino Transf (AST/SGOT) 13 U/L (15-37) Alanine Aminotransferase (ALT/SGPT) 7 U/L (14-59) Alkaline Phosphatase 120 U/L (46-116) Troponin I Quantitative < 0.017 ng/mL (0.000-0.055) Total Protein 7.6 g/dL (6.4-8.2) Albumin 2.6 g/dL (3.4-5.0) Albumin/Globulin Ratio 0.5 (1.0-1.7) Glucose (Fingerstick) 143 mg/dL (70-99) Triglycerides Level 85 mg/dL (0-150) Cholesterol Level 176 mg/dL (0-200) LDL Cholesterol, Calculated 113 mg/dL (0-100) VLDL Cholesterol, Calculated 17 mg/dL (0-40) Non-HDL Cholesterol Calculated 130 mg/dL (0-129) HDL Cholesterol 46 mg/dL (40-60) Cholesterol/HDL Ratio 3.8 Vitamin B12 Level 358 pg/mL (247-911) Thyroid Stimulating Hormone (TSH) 1.773 uIU/mL (0.358-3.74) Test 06/11/18 09:00 06/11/18 12:17 06/11/18 17:39 06/11/18 21:19 Glucose (Fingerstick) 184 mg/dL (70-99) 150 mg/dL (70-99) 123 mg/dL (70-99) 151 mg/dL (70-99) Test 06/12/18 05:20 06/12/18 08:07 06/12/18 11:52 White Blood Count 5.8 x10^3/uL (4.0-11.0) Red Blood Count 4.00 x10^6/uL (3.50-5.40) Hemoglobin 11.5 g/dL (12.0-15.5) Hematocrit 34.8 % (36.0-47.0) Mean Corpuscular Volume 87 fL (79-100) Mean Corpuscular Hemoglobin 29 pg (25-35) Mean Corpuscular Hemoglobin Concent 33 g/dL (31-37) Red Cell Distribution Width 14.8 % (11.5-14.5) Platelet Count 378 x10^3/uL (140-400) Neutrophils (%) (Auto) 59 % (31-73) Lymphocytes (%) (Auto) 24 % (24-48) Monocytes (%) (Auto) 15 % (0-9) Eosinophils (%) (Auto) 2 % (0-3) Basophils (%) (Auto) 1 % (0-3) Neutrophils # (Auto) 3.4 x10^3uL (1.8-7.7) Lymphocytes # (Auto) 1.4 x10^3/uL (1.0-4.8) Monocytes # (Auto) 0.8 x10^3/uL (0.0-1.1) Eosinophils # (Auto) 0.1 x10^3/uL (0.0-0.7) Basophils # (Auto) 0.0 x10^3/uL (0.0-0.2) Sodium Level 138 mmol/L (136-145) Potassium Level 3.9 mmol/L (3.5-5.1) Chloride Level 101 mmol/L (98-107) Carbon Dioxide Level 25 mmol/L (21-32) Anion Gap 12 (6-14) Blood Urea Nitrogen 12 mg/dL (7-20) Creatinine 0.8 mg/dL (0.6-1.0) Estimated GFR (Cockcroft-Gault) 81.9 Glucose Level 108 mg/dL (70-99) Calcium Level 9.0 mg/dL (8.5-10.1) Magnesium Level 1.9 mg/dL (1.8-2.4) Glucose (Fingerstick) 102 mg/dL (70-99) 115 mg/dL (70-99) Laboratory Tests Test 06/11/18 17:39 06/11/18 21:19 06/12/18 05:20 06/12/18 08:07 Glucose (Fingerstick) 123 mg/dL (70-99) 151 mg/dL (70-99) 102 mg/dL (70-99) White Blood Count 5.8 x10^3/uL (4.0-11.0) Red Blood Count 4.00 x10^6/uL (3.50-5.40) Hemoglobin 11.5 g/dL (12.0-15.5) Hematocrit 34.8 % (36.0-47.0) Mean Corpuscular Volume 87 fL (79-100) Mean Corpuscular Hemoglobin 29 pg (25-35) Mean Corpuscular Hemoglobin Concent 33 g/dL (31-37) Red Cell Distribution Width 14.8 % (11.5-14.5) Platelet Count 378 x10^3/uL (140-400) Neutrophils (%) (Auto) 59 % (31-73) Lymphocytes (%) (Auto) 24 % (24-48) Monocytes (%) (Auto) 15 % (0-9) Eosinophils (%) (Auto) 2 % (0-3) Basophils (%) (Auto) 1 % (0-3) Neutrophils # (Auto) 3.4 x10^3uL (1.8-7.7) Lymphocytes # (Auto) 1.4 x10^3/uL (1.0-4.8) Monocytes # (Auto) 0.8 x10^3/uL (0.0-1.1) Eosinophils # (Auto) 0.1 x10^3/uL (0.0-0.7) Basophils # (Auto) 0.0 x10^3/uL (0.0-0.2) Sodium Level 138 mmol/L (136-145) Potassium Level 3.9 mmol/L (3.5-5.1) Chloride Level 101 mmol/L (98-107) Carbon Dioxide Level 25 mmol/L (21-32) Anion Gap 12 (6-14) Blood Urea Nitrogen 12 mg/dL (7-20) Creatinine 0.8 mg/dL (0.6-1.0) Estimated GFR (Cockcroft-Gault) 81.9 Glucose Level 108 mg/dL (70-99) Calcium Level 9.0 mg/dL (8.5-10.1) Magnesium Level 1.9 mg/dL (1.8-2.4) Test 06/12/18 11:52 Glucose (Fingerstick) 115 mg/dL (70-99) Medications Current Medications Sodium Chloride 500 ml @ 500 mls/hr Q1H IV Last administered on 06/10/18at 17: 51; Start 06/10/18 at 16:00; Stop 06/10/18 at 17:52; Status DC Levofloxacin (Levaquin) 500 mg 1X ONCE PO Last administered on 06/10/18at 17:51 ; Start 06/10/18 at 17:30; Stop 06/10/18 at 17:31; Status DC Acetaminophen (Tylenol) 650 mg 1X ONCE PO Last administered on 06/10/18at 17:51 ; Start 06/10/18 at 17:45; Stop 06/10/18 at 17:46; Status DC Acetaminophen (Tylenol) 650 mg 1X ONCE PO ; Start 06/10/18 at 17:45; Stop 06/10 at 17:46; Status UNV Sodium Chloride 1,000 ml @ 100 mls/hr Q10H IV ; Start 06/10/18 at 18:29; Stop 06/11/18 at 11:35; Status DC Ringer's Solution 1,000 ml @ 100 mls/hr Q10H IV Last administered on at 13:00; Start 06/10/18 at 21:00 Ondansetron HCl (Zofran) 4 mg PRN Q6HRS PRN IV NAUSEA/VOMITING; Start 06/10/18 at 21:00 Senna/Docusate Sodium (Senna Plus) 1 tab BID PO ; Start 06/10/18 at 21:00 Magnesium Hydroxide (Milk Of Magnesia) 2,400 mg PRN Q12HR PRN PO CONSTIPATION; Start 06/10/18 at 21:00 Ciprofloxacin/ Dextrose 100 ml @ 100 mls/hr Q12HR IV Last administered on 06/12at 08:03; Start 06/11/18 at 09:00 Insulin Human Lispro (HumaLOG) 0-5 UNITS TIDWMEALS SQ ; Start 06/11/18 at 08:00 Dextrose (Dextrose 50%-Water Syringe) 12.5 gm PRN Q15MIN PRN IV SEE COMMENTS; Start 06/10/18 at 21:30 Acetaminophen (Tylenol) 650 mg PRN Q6HRS PRN PO PAIN; Start 06/11/18 at 01:00 Ketorolac Tromethamine (Toradol 15mg Vial) 15 mg PRN Q8HRS PRN IV PAIN Last administered on 06/11/18at 06:05; Start 06/11/18 at 05:30; Stop 06/16/18 at 05:29 Lorazepam (Ativan) 0.5 mg 1X ONCE IV Last administered on 06/11/18at 14:45; Start 06/11/18 at 14:45; Stop 06/11/18 at 14:46; Status DC Lorazepam (Ativan) 2 mg 1X ONCE IV Last administered on 06/11/18at 15:45; Start 06/11/18 at 15:45; Stop 06/11/18 at 15:46; Status DC Aspirin (Aspirin) 300 mg DAILY RI Last administered on 06/12/18at 08:03; Start 06/11/18 at 17:20 Lactobacillus Rhamnosus (Culturelle) 1 cap BID PO ; Start 06/12/18 at 21:00 Atorvastatin Calcium (Lipitor) 20 mg QHS PO ; Start 06/12/18 at 21:00 Active Scripts Active Reported No Known Medications Prior To Admisstion (Info) Each 1 Each 1X Vitals/I & O Vital Sign - Last 24 Hours 06/11/18 06/11/18 06/11/18 06/11/18 15:00 16:00 16:00 17:00 Temp 98.8 98.8 Pulse 87 86 87 Resp 15 18 23 B/P (MAP) 113/77 (89) 113/77 (89) 135/62 (86) Pulse Ox 95 94 98 O2 Delivery Room Air Room Air Nasal Cannula Room Air O2 Flow Rate 2.0 06/11/18 06/11/18 06/11/18 06/11/18 18:00 19:00 20:00 20:00 Temp 97.8 97.8 Pulse 88 78 79 Resp 21 23 20 B/P (MAP) 126/80 (95) 133/79 (97) 102/56 (71) Pulse Ox 100 100 100 O2 Delivery Room Air Room Air Room Air Room Air 06/11/18 06/11/18 06/11/18 06/12/18 21:00 22:00 23:00 00:00 Pulse 78 88 86 Resp 20 19 B/P (MAP) 100/54 (69) 124/57 (79) 131/51 (77) Pulse Ox 99 100 100 O2 Delivery Room Air Room Air Room Air Room Air 06/12/18 06/12/18 06/12/18 06/12/18 00:00 01:00 02:00 03:00 Temp 97.9 97.9 Pulse 82 70 66 73 Resp 25 19 20 16 B/P (MAP) 151/75 (100) 95/45 (62) 103/48 (66) 104/60 (75) Pulse Ox 100 99 100 100 O2 Delivery Room Air Room Air Room Air Room Air 06/12/18 06/12/18 06/12/18 06/12/18 03:45 04:00 05:00 06:00 Temp 97.8 97.8 Pulse 71 71 81 Resp 19 18 19 B/P (MAP) 116/50 (72) 96/49 (65) 112/56 (74) Pulse Ox 100 98 100 O2 Delivery Room Air Room Air Room Air Room Air 06/12/18 06/12/18 06/12/18 06/12/18 07:00 08:00 08:00 09:00 Temp 98.1 98.1 Pulse 66 69 87 Resp 18 9 32 B/P (MAP) 111/52 (71) 119/54 (75) 121/59 (79) Pulse Ox 99 100 100 O2 Delivery Room Air Room Air Room Air Room Air 06/12/18 06/12/18 06/12/18 06/12/18 10:00 11:00 12:00 12:00 Temp 98.2 98.2 Pulse 73 64 63 Resp 20 18 14 B/P (MAP) 121/49 (73) 114/43 (66) 95/50 (65) Pulse Ox 100 100 100 O2 Delivery Room Air Room Air Room Air Room Air Intake and Output 06/11/18 06/11/18 06/12/18 15:00 23:00 07:00 Intake Total 1324 ml Output Total 370 ml 250 ml Balance -370 ml 1074 ml Nutrition Consultation Dietary Evaluation: Recommendations by RD: Protein supplementation Comments: REC liberalize diet to regular to allow pt more food options REC Ensure TID Expected Outcomes/Goals: PO intake to meet >75% est needs Malnutrition Findings: Food and Nutrition Intake (Sev: <50% est energy req 5days Body Fat Depletion (Non Severe: Mild Depletion Weight Status: Appropriate DENG JOHNSON III DO Jun 12, 2018 14:37
--- NOTE | 2018-06-12 16:23 | NUR ---
SS following up with discharge planning. SS met with pt's son in room and discussed [facility] and discharge planning. Pt's son reported that he was agreeable to [facility] and would contact his brothers and confirm as well. SS discussed [employer] insurance. Pt's son agreeable to referral to [facility]. SS phoned and faxed referral to [facility], ; fax [phone]. SS will await acceptance decision and insurance determination and will proceed accordingly with discharge planning.
--- NOTE | 2018-06-12 17:01 | PDOC ---
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 Generalized weakness since 06/11/18. Metabolic encephalopathy. Lethargy. Confusion. 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 Fall. DM. HTN. UTI. RECOMMENDATIONS/PLAN: ASA 300 mg Rectal daily. Lipitor 20 mg HS if can swallow. Keep good hydration. Treat medical diseases. OT/PT. Rehab. Discussed with her son and grand-daughter in great detail and showed them MRI findings on 06/11 and further discussions on 06/12. Tried to transfer to [facility], but [facility] declined transfer on 06/11/18 due to no indication for endovascular treatment nor has other offers. MRI w/o contrast on 06/11/18 showed large right hemisphere infarct on DWI, FLARE , and other imaging. Carotid A US + Doppler: No high grade stenosis. Echo: Unremarkable, refer to reports. HISTORY OF THE PRESENT ILLNESS: This is an 88-y-old AA female patent with history of HTN and DM per her son was noted MS changes by family on 06/10/18. Patient was at home when she tried to stand up off couch and became very weak and fell. Patient reportedly had struck her head but had no loss of consciousness. She was last known normal on 06/09/18 as family stated on 06/10/18 that the previous night patient was normal but she was very confused noted by family on 06/10/18. Patient was brought to the ER of [facility] with complaints of generalized weakness. Neurology was requested for consultation on 06/11/18 and further evaluation revealed a large right MCA territory infarct. Her son stated that he saw his mother in bed about 6:00 am on 06/10/18, but no information about her condition during sleep that night. PAST MEDICAL HISTORY: HTN. DM. PAST SURGERY HISTORY: No major surgery recently. ALLERGY: Penicillins (Verified Allergy, Intermediate, 06/10/18) MEDICATIONS: Refer to [facility] FAMILY HISTORY: Non contributory. SOCIAL HISTORY: Lives with her son and grand children at home. Unknown her status of smoking, drinking, and illicit drug use. REVIEW OF SYSTEMS: Constitutional: No malnutrition, weight loss, cachexia. Head: No traumatic brain or head injury. Skin: No edema, or rash. Ear: No infection. Eyes: No vision loss or color blindness. Nose: No bleeding or purulent discharges. Hearing: Hearing decrease. Neck: No injury. Breast: No history of cancer, masses,or discharges. Cardiac: HTN, HLD. Pulmonary: No COPD. GI: No GI ulcer, GI bleeding. Urinary/genital: UTI. Endocrinologic: No cousin face, craniofacial dysmorphism, polydactyly. Skeletomuscular: Generalized weakness. Neurological: see HP. Psychiatric: Denies drug use/abuse. Otherwise, not [id number] review of systems. PHYSICAL EXAMINATION: General appearance is in subacute distress. HEENT: Normocephalic and nontraumatic. Eyes, nose, ears, and throat are unremarkable. Neck is supple. No lymphadenopathy. No crepitus. Cardiovascular: S1, S2, regular rate and rhythm. Pulmonary: Mildly decreased to auscultation bilaterally. Abdomen: Bowel sounds are positive. Extremities: No rash, lesions, or edema. No restriction of range of motion NEUROLOGICAL EXAMINATION: Drowsiness. Not oriented to time, place and person. PERRL. 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 Muscle tone: Fluctuated. Muscle strength: 4 left UE, 5 right UE. Unable to access LE accurately. DTR: 1-2 Plantar reflex: Neutral response bilaterally Gait: Unable to walk. Sensory exam: Decreased to temperature, light touch and vibration sense in left UE and LE. Not able to access cerebellar signs. F-T-N test not performed due to not follow commands. Objective Objective Vital Signs Date Time Temp Pulse Resp B/P (MAP) Pulse Ox O2 Delivery O2 Flow Rate FiO2 06/12/18 16:00 98.2 77 21 107/70 (82) 100 Room Air 98.2 06/11/18 16:00 2.0 Intake and Output 06/12/18 07:00 Intake Total 1324 ml Output Total 620 ml Balance 704 ml Intake IV Total 1324 ml Output Urine Total 620 ml Vitals Signs Vitals VS - Last 72 Hours, by Label Date Time Temp Pulse Resp B/P (MAP) Pulse Ox O2 Delivery O2 Flow Rate FiO2 06/12/18 16:00 98.2 77 21 107/70 (82) 100 Room Air 98.2 06/12/18 16:00 Room Air 06/12/18 12:00 98.2 63 14 95/50 (65) 100 Room Air 98.2 06/12/18 12:00 Room Air 06/12/18 11:00 64 18 114/43 (66) 100 Room Air 06/12/18 10:00 73 20 121/49 (73) 100 Room Air 06/12/18 09:00 87 32 121/59 (79) 100 Room Air 06/12/18 08:00 Room Air 06/12/18 08:00 98.1 69 9 119/54 (75) 100 Room Air 98.1 06/12/18 07:00 66 18 111/52 (71) 99 Room Air 06/12/18 06:00 81 19 112/56 (74) 100 Room Air 06/12/18 05:00 71 18 96/49 (65) 98 Room Air 06/12/18 04:00 97.8 71 19 116/50 (72) 100 Room Air 97.8 06/12/18 03:45 Room Air 06/12/18 03:00 73 16 104/60 (75) 100 Room Air 06/12/18 02:00 66 20 103/48 (66) 100 Room Air 06/12/18 01:00 70 19 95/45 (62) 99 Room Air 06/12/18 00:00 97.9 82 25 151/75 (100) 100 Room Air 97.9 06/12/18 00:00 Room Air 06/11/18 23:00 86 19 131/51 (77) 100 Room Air 06/11/18 22:00 88 26 124/57 (79) 100 Room Air 06/11/18 21:00 78 20 100/54 (69) 99 Room Air 06/11/18 20:00 97.8 79 20 102/56 (71) 100 Room Air 97.8 06/11/18 20:00 Room Air 06/11/18 19:00 78 23 133/79 (97) 100 Room Air 06/11/18 18:00 88 21 126/80 (95) 100 Room Air 06/11/18 17:00 87 23 135/62 (86) 98 Room Air 06/11/18 16:00 Nasal Cannula 2.0 06/11/18 16:00 98.8 86 18 113/77 (89) 94 Room Air 98.8 06/11/18 15:00 87 15 113/77 (89) 95 Room Air 2/11/19 11:00 98.0 85 16 121/52 (75) 99 Room Air 98.0 06/11/18 08:00 Room Air 06/11/18 07:00 97.9 99 14 120/75 (90) 96 Room Air 97.9 Laboratory Laboratory Laboratory Tests Test 06/11/18 17:39 06/11/18 17:58 06/11/18 21:19 06/12/18 05:20 Glucose (Fingerstick) 123 mg/dL (70-99) 151 mg/dL (70-99) Nasal Screen MRSA (PCR) Negative (Negative) White Blood Count 5.8 x10^3/uL (4.0-11.0) Red Blood Count 4.00 x10^6/uL (3.50-5.40) Hemoglobin 11.5 g/dL (12.0-15.5) Hematocrit 34.8 % (36.0-47.0) Mean Corpuscular Volume 87 fL (79-100) Mean Corpuscular Hemoglobin 29 pg (25-35) Mean Corpuscular Hemoglobin Concent 33 g/dL (31-37) Red Cell Distribution Width 14.8 % (11.5-14.5) Platelet Count 378 x10^3/uL (140-400) Neutrophils (%) (Auto) 59 % (31-73) Lymphocytes (%) (Auto) 24 % (24-48) Monocytes (%) (Auto) 15 % (0-9) Eosinophils (%) (Auto) 2 % (0-3) Basophils (%) (Auto) 1 % (0-3) Neutrophils # (Auto) 3.4 x10^3uL (1.8-7.7) Lymphocytes # (Auto) 1.4 x10^3/uL (1.0-4.8) Monocytes # (Auto) 0.8 x10^3/uL (0.0-1.1) Eosinophils # (Auto) 0.1 x10^3/uL (0.0-0.7) Basophils # (Auto) 0.0 x10^3/uL (0.0-0.2) Sodium Level 138 mmol/L (136-145) Potassium Level 3.9 mmol/L (3.5-5.1) Chloride Level 101 mmol/L (98-107) Carbon Dioxide Level 25 mmol/L (21-32) Anion Gap 12 (6-14) Blood Urea Nitrogen 12 mg/dL (7-20) Creatinine 0.8 mg/dL (0.6-1.0) Estimated GFR (Cockcroft-Gault) 81.9 Glucose Level 108 mg/dL (70-99) Calcium Level 9.0 mg/dL (8.5-10.1) Magnesium Level 1.9 mg/dL (1.8-2.4) Test 06/12/18 08:07 06/12/18 11:52 Glucose (Fingerstick) 102 mg/dL (70-99) 115 mg/dL (70-99) Medication Medications Current Medications Aspirin (Aspirin) 300 mg DAILY NE Last administered on 06/12/18at 08:03; Start 06/11/18 at 17:20 Atorvastatin Calcium (Lipitor) 20 mg QHS PO ; Start 06/12/18 at 21:00 Lactobacillus Rhamnosus (Culturelle) 1 cap BID PO ; Start 06/12/18 at 21:00 Comment Review of Relevant I have reviewed the following items maria teresa (where applicable) has been applied. LALO GONZALEZ MD Jun 12, 2018 17:01
[2018-06-12] MEDS: LACTOBACILLUS RHAMNOSUS GG 1 CAPSULE. PO SCH (19:29)
[2018-06-12] MEDS: ATORVASTATIN CALCIUM 20 MG TABLET PO SCH (19:47)
[2018-06-13 03:35] VITALS: BP 130/57
[2018-06-13 07:00] VITALS: BP 106/55
[2018-06-13 08:00] LABS: BASO % 1 % (0-3); EOS # 0.1 x10^3/uL (0.0-0.7); EOS % 3 % (0-3); HEMATOCRIT 34.6 % (36.0-47.0); HEMOGLOBIN 11.3 g/dL (12.0-15.5); LYMPH # 1.2 x10^3/uL (1.0-4.8); LYMPH % 21 % (24-48); MEAN CORPUSCULAR HEMOGLOBIN 28 pg (25-35); MEAN CORPUSCULAR HGB CONC 33 g/dL (31-37); MEAN CORPUSCULAR VOLUME 87 fL (79-100); MONO # 0.6 x10^3/uL (0.0-1.1); MONO % 12 % (0-9); NEUT # 3.4 x10^3uL (1.8-7.7); NEUT % 63 % (31-73); PLATELET COUNT 384 x10^3/uL (140-400); RED BLOOD COUNT 3.99 x10^6/uL (3.50-5.40); RED CELL DISTRIBUTION WIDTH 14.5 % (11.5-14.5); WHITE BLOOD COUNT 5.4 x10^3/uL (4.0-11.0)
[2018-06-13] MEDS: INSULIN LISPRO 300 UNITS/3 ML INSULN.PEN. SQ SCH ×3 (08:00→17:00)
[2018-06-13 08:04] LABS: CALCIUM 8.6 mg/dL (8.5-10.1); CREATININE 0.8 mg/dL (0.6-1.0); GFR 81.9; POTASSIUM 3.6 mmol/L (3.5-5.1)
[2018-06-13] MEDS: LACTOBACILLUS RHAMNOSUS GG 1 CAPSULE. PO SCH ×2 (09:00→21:55)
[2018-06-13] MEDS: SENNOSIDES/DOCUSATE 8.6/50MG TABLET. PO SCH ×2 (09:00→21:55)
[2018-06-13] MEDS: CIPROFLOXACIN 200MG PREMIX 100 ML IV SCH (10:03)
[2018-06-13] MEDS: ASPIRIN RECTAL 300 MG SUPP. PR SCH (10:08)
[2018-06-13 11:33] VITALS: BP 120/55
--- NOTE | 2018-06-13 11:54 | NUR ---
SW following pt. Spoke with pt regarding her social security number and Pt was able to recall her SS number: [id number]. Pt also signed AD form and verbalized understanding regarding document. JAQUELIN Madrid was also in room. SW notarized form and a copy placed on pt's chart. MARLY provided pt and son, Aubrey Johansen, phone: [phone] with a original and copies to take home. SW also informed son to complete financial/living will with an document review attorney. Pt's son verbalized understanding. A copy of AD placed on pt's chart. MARLY also spoke with Aubrey regarding pt's prior living situation. He reported pt was mainly living by herself for majority of time with his brother checking in on her. Aubrey aware pt is not in a condition to return back to her prior living situation and family is working on post rehab plans. SW extensively discussed SNU, LTC, HH and insurance coverage. Pt's son reported pt owns her own home and SW discussed pt will have to be on spend down to qualify for Medicaid. SW discussed insurance coverage for SNU services. Son reported they are more looking into rehab to home while discussing options with other family members. He reported pt might be able to move in to his home after rehab and SW discussed services provided with Home health. SW also discussed if they are looking into home care, they might have to pay out of pocket. Pt's son agreeable with plans to rehab at [facility] and rehab. Aimme from facility also spoke with family and pt has been accepted pending insurance approval. Insurance auth for SNU pending. SW will continue to follow pt.
--- NOTE | 2018-06-13 13:48 | PDOC ---
PROGRESS NOTES Chief Complaint Chief Complaint CC: AMS, weakness and fall Large right hemisphere infarct. Metabolic encephalopathy Lethargy Confusion DM HTN Incidental UTI DYsphagia Poor PO FULL CODE History of Present Illness History of Present Illness Long time in the room at least 45 minutes Patient being treated for incidental UTI Son who is a blending line attendant also needed some explaining from the admission up to where we are Does have a acute stroke right frontotemporal parietal area and right cerebellar - I have provided imaging copies No TPA given at ER- not recommended Had a lot of questions about why not TPA given BP pressure good Bilateral carotid ultrasound shows bilateral plaquing 0-50% stenosis otherwise no hemodynamic instability Patient has been refusing by mouth meds and eating Passed swallow dysphagia 2 diet with honey thin liq per HOSPITAL SCIENTIST eval Plan: son agreeable to trial of Marinol to increase appetite Son agreeable to rehabilitation-social work on case looking at [place] ProcalAmine for now while in-house Cipro IV for now while in-house Awaiting urine culture PT OT Full code-I have discussed CODE STATUS with the son-full code for now but they' re [place] the bridge [place] they get there, seems reasonable DNR if needed once a time, his No PEG tube or feeding plans [place] on discharge Echo ASA daily and Lipitor for the stroke Rehabilitation modalities signif time Vitals Vitals Vital Signs Date Time Temp Pulse Resp B/P (MAP) Pulse Ox O2 Delivery O2 Flow Rate FiO2 06/13/18 11:33 98.4 78 18 120/55 (76) 96 Room Air 98.4 06/13/18 08:00 2.0 Physical Exam General: Cooperative, No acute distress Heart: Regular rate, No murmurs Lungs: Clear, Other (No wheezing or crackles) Abdomen: Normal bowel sounds, Soft, No tenderness Extremities: No clubbing, No cyanosis, No edema, Other (Moves all extremities) Skin: No rashes, No significant lesion Labs LABS Laboratory Tests Test 06/12/18 16:58 06/12/18 19:55 06/13/18 07:10 06/13/18 07:55 Glucose (Fingerstick) 96 mg/dL (70-99) 67 mg/dL (70-99) 116 mg/dL (70-99) White Blood Count 5.4 x10^3/uL (4.0-11.0) Red Blood Count 3.99 x10^6/uL (3.50-5.40) Hemoglobin 11.3 g/dL (12.0-15.5) Hematocrit 34.6 % (36.0-47.0) Mean Corpuscular Volume 87 fL (79-100) Mean Corpuscular Hemoglobin 28 pg (25-35) Mean Corpuscular Hemoglobin Concent 33 g/dL (31-37) Red Cell Distribution Width 14.5 % (11.5-14.5) Platelet Count 384 x10^3/uL (140-400) Neutrophils (%) (Auto) 63 % (31-73) Lymphocytes (%) (Auto) 21 % (24-48) Monocytes (%) (Auto) 12 % (0-9) Eosinophils (%) (Auto) 3 % (0-3) Basophils (%) (Auto) 1 % (0-3) Neutrophils # (Auto) 3.4 x10^3uL (1.8-7.7) Lymphocytes # (Auto) 1.2 x10^3/uL (1.0-4.8) Monocytes # (Auto) 0.6 x10^3/uL (0.0-1.1) Eosinophils # (Auto) 0.1 x10^3/uL (0.0-0.7) Basophils # (Auto) 0.0 x10^3/uL (0.0-0.2) Sodium Level 138 mmol/L (136-145) Potassium Level 3.6 mmol/L (3.5-5.1) Chloride Level 103 mmol/L (98-107) Carbon Dioxide Level 26 mmol/L (21-32) Anion Gap 9 (6-14) Blood Urea Nitrogen 9 mg/dL (7-20) Creatinine 0.8 mg/dL (0.6-1.0) Estimated GFR (Cockcroft-Gault) 81.9 Glucose Level 108 mg/dL (70-99) Calcium Level 8.6 mg/dL (8.5-10.1) Test 06/13/18 11:15 Glucose (Fingerstick) 173 mg/dL (70-99) Review of Systems Review of Systems Limited, has some confusion but is calm Assessment and Plan Assessmemt and Plan Problems Medical Problems: (1) Altered mental status Status: Acute (2) UTI (urinary tract infection) Status: Acute Comment Review of Relevant I have reviewed the following items maria teresa (where applicable) has been applied. Labs Laboratory Tests Test 06/11/18 17:39 06/11/18 17:58 06/11/18 21:19 06/12/18 05:20 Glucose (Fingerstick) 123 mg/dL (70-99) 151 mg/dL (70-99) Nasal Screen MRSA (PCR) Negative (Negative) White Blood Count 5.8 x10^3/uL (4.0-11.0) Red Blood Count 4.00 x10^6/uL (3.50-5.40) Hemoglobin 11.5 g/dL (12.0-15.5) Hematocrit 34.8 % (36.0-47.0) Mean Corpuscular Volume 87 fL (79-100) Mean Corpuscular Hemoglobin 29 pg (25-35) Mean Corpuscular Hemoglobin Concent 33 g/dL (31-37) Red Cell Distribution Width 14.8 % (11.5-14.5) Platelet Count 378 x10^3/uL (140-400) Neutrophils (%) (Auto) 59 % (31-73) Lymphocytes (%) (Auto) 24 % (24-48) Monocytes (%) (Auto) 15 % (0-9) Eosinophils (%) (Auto) 2 % (0-3) Basophils (%) (Auto) 1 % (0-3) Neutrophils # (Auto) 3.4 x10^3uL (1.8-7.7) Lymphocytes # (Auto) 1.4 x10^3/uL (1.0-4.8) Monocytes # (Auto) 0.8 x10^3/uL (0.0-1.1) Eosinophils # (Auto) 0.1 x10^3/uL (0.0-0.7) Basophils # (Auto) 0.0 x10^3/uL (0.0-0.2) Sodium Level 138 mmol/L (136-145) Potassium Level 3.9 mmol/L (3.5-5.1) Chloride Level 101 mmol/L (98-107) Carbon Dioxide Level 25 mmol/L (21-32) Anion Gap 12 (6-14) Blood Urea Nitrogen 12 mg/dL (7-20) Creatinine 0.8 mg/dL (0.6-1.0) Estimated GFR (Cockcroft-Gault) 81.9 Glucose Level 108 mg/dL (70-99) Calcium Level 9.0 mg/dL (8.5-10.1) Magnesium Level 1.9 mg/dL (1.8-2.4) Test 06/12/18 08:07 06/12/18 11:52 06/12/18 16:58 06/12/18 19:55 Glucose (Fingerstick) 102 mg/dL (70-99) 115 mg/dL (70-99) 96 mg/dL (70-99) 67 mg/dL (70-99) Test 06/13/18 07:10 06/13/18 07:55 06/13/18 11:15 White Blood Count 5.4 x10^3/uL (4.0-11.0) Red Blood Count 3.99 x10^6/uL (3.50-5.40) Hemoglobin 11.3 g/dL (12.0-15.5) Hematocrit 34.6 % (36.0-47.0) Mean Corpuscular Volume 87 fL (79-100) Mean Corpuscular Hemoglobin 28 pg (25-35) Mean Corpuscular Hemoglobin Concent 33 g/dL (31-37) Red Cell Distribution Width 14.5 % (11.5-14.5) Platelet Count 384 x10^3/uL (140-400) Neutrophils (%) (Auto) 63 % (31-73) Lymphocytes (%) (Auto) 21 % (24-48) Monocytes (%) (Auto) 12 % (0-9) Eosinophils (%) (Auto) 3 % (0-3) Basophils (%) (Auto) 1 % (0-3) Neutrophils # (Auto) 3.4 x10^3uL (1.8-7.7) Lymphocytes # (Auto) 1.2 x10^3/uL (1.0-4.8) Monocytes # (Auto) 0.6 x10^3/uL (0.0-1.1) Eosinophils # (Auto) 0.1 x10^3/uL (0.0-0.7) Basophils # (Auto) 0.0 x10^3/uL (0.0-0.2) Sodium Level 138 mmol/L (136-145) Potassium Level 3.6 mmol/L (3.5-5.1) Chloride Level 103 mmol/L (98-107) Carbon Dioxide Level 26 mmol/L (21-32) Anion Gap 9 (6-14) Blood Urea Nitrogen 9 mg/dL (7-20) Creatinine 0.8 mg/dL (0.6-1.0) Estimated GFR (Cockcroft-Gault) 81.9 Glucose Level 108 mg/dL (70-99) Calcium Level 8.6 mg/dL (8.5-10.1) Glucose (Fingerstick) 116 mg/dL (70-99) 173 mg/dL (70-99) Laboratory Tests Test 06/12/18 16:58 06/12/18 19:55 06/13/18 07:10 06/13/18 07:55 Glucose (Fingerstick) 96 mg/dL (70-99) 67 mg/dL (70-99) 116 mg/dL (70-99) White Blood Count 5.4 x10^3/uL (4.0-11.0) Red Blood Count 3.99 x10^6/uL (3.50-5.40) Hemoglobin 11.3 g/dL (12.0-15.5) Hematocrit 34.6 % (36.0-47.0) Mean Corpuscular Volume 87 fL (79-100) Mean Corpuscular Hemoglobin 28 pg (25-35) Mean Corpuscular Hemoglobin Concent 33 g/dL (31-37) Red Cell Distribution Width 14.5 % (11.5-14.5) Platelet Count 384 x10^3/uL (140-400) Neutrophils (%) (Auto) 63 % (31-73) Lymphocytes (%) (Auto) 21 % (24-48) Monocytes (%) (Auto) 12 % (0-9) Eosinophils (%) (Auto) 3 % (0-3) Basophils (%) (Auto) 1 % (0-3) Neutrophils # (Auto) 3.4 x10^3uL (1.8-7.7) Lymphocytes # (Auto) 1.2 x10^3/uL (1.0-4.8) Monocytes # (Auto) 0.6 x10^3/uL (0.0-1.1) Eosinophils # (Auto) 0.1 x10^3/uL (0.0-0.7) Basophils # (Auto) 0.0 x10^3/uL (0.0-0.2) Sodium Level 138 mmol/L (136-145) Potassium Level 3.6 mmol/L (3.5-5.1) Chloride Level 103 mmol/L (98-107) Carbon Dioxide Level 26 mmol/L (21-32) Anion Gap 9 (6-14) Blood Urea Nitrogen 9 mg/dL (7-20) Creatinine 0.8 mg/dL (0.6-1.0) Estimated GFR (Cockcroft-Gault) 81.9 Glucose Level 108 mg/dL (70-99) Calcium Level 8.6 mg/dL (8.5-10.1) Test 06/13/18 11:15 Glucose (Fingerstick) 173 mg/dL (70-99) Microbiology 06/10/18 Urine Culture - Preliminary, Resulted 06/10/18 Urine Culture Result 1 (AMAIRANI) - Preliminary, Resulted Medications Current Medications Sodium Chloride 500 ml @ 500 mls/hr Q1H IV Last administered on 06/10/18at 17: 51; Start 06/10/18 at 16:00; Stop 06/10/18 at 17:52; Status DC Levofloxacin (Levaquin) 500 mg 1X ONCE PO Last administered on 06/10/18at 17:51 ; Start 06/10/18 at 17:30; Stop 06/10/18 at 17:31; Status DC Acetaminophen (Tylenol) 650 mg 1X ONCE PO Last administered on 06/10/18at 17:51 ; Start 06/10/18 at 17:45; Stop 06/10/18 at 17:46; Status DC Acetaminophen (Tylenol) 650 mg 1X ONCE PO ; Start 06/10/18 at 17:45; Stop 06/10 at 17:46; Status UNV Sodium Chloride 1,000 ml @ 100 mls/hr Q10H IV ; Start 06/10/18 at 18:29; Stop 06/11/18 at 11:35; Status DC Ringer's Solution 1,000 ml @ 100 mls/hr Q10H IV Last administered on at 19:54; Start 06/10/18 at 21:00; Stop 06/13/18 at 11:17; Status DC Ondansetron HCl (Zofran) 4 mg PRN Q6HRS PRN IV NAUSEA/VOMITING; Start 06/10/18 at 21:00 Senna/Docusate Sodium (Senna Plus) 1 tab BID PO ; Start 06/10/18 at 21:00 Magnesium Hydroxide (Milk Of Magnesia) 2,400 mg PRN Q12HR PRN PO CONSTIPATION; Start 06/10/18 at 21:00 Ciprofloxacin/ Dextrose 100 ml @ 100 mls/hr Q12HR IV Last administered on 06/13at 10:03; Start 06/11/18 at 09:00; Stop 06/13/18 at 11:17; Status DC Insulin Human Lispro (HumaLOG) 0-5 UNITS TIDWMEALS SQ ; Start 06/11/18 at 08:00 Dextrose (Dextrose 50%-Water Syringe) 12.5 gm PRN Q15MIN PRN IV SEE COMMENTS Last administered on 06/12/18at 23:28; Start 06/10/18 at 21:30 Acetaminophen (Tylenol) 650 mg PRN Q6HRS PRN PO PAIN; Start 06/11/18 at 01:00 Ketorolac Tromethamine (Toradol 15mg Vial) 15 mg PRN Q8HRS PRN IV PAIN Last administered on 06/11/18at 06:05; Start 06/11/18 at 05:30; Stop 06/16/18 at 05:29 Lorazepam (Ativan) 0.5 mg 1X ONCE IV Last administered on 06/11/18at 14:45; Start 06/11/18 at 14:45; Stop 06/11/18 at 14:46; Status DC Lorazepam (Ativan) 2 mg 1X ONCE IV Last administered on 06/11/18at 15:45; Start 06/11/18 at 15:45; Stop 06/11/18 at 15:46; Status DC Aspirin (Aspirin) 300 mg DAILY IL Last administered on 06/13/18at 10:08; Start 06/11/18 at 17:20 Lactobacillus Rhamnosus (Culturelle) 1 cap BID PO ; Start 06/12/18 at 21:00 Atorvastatin Calcium (Lipitor) 20 mg QHS PO ; Start 06/12/18 at 21:00 Ciprofloxacin (Cipro) 250 mg BID PO ; Start 06/13/18 at 21:00 Active Scripts Active Reported No Known Medications Prior To Admisstion (Info) Each 1 Each MC 1X Vitals/I & O Vital Sign - Last 24 Hours 06/12/18 06/12/18 06/12/18 06/12/18 16:00 16:00 20:00 20:06 Temp 98.2 98.1 98.2 98.1 Pulse 77 59 Resp 21 16 B/P (MAP) 107/70 (82) 102/53 (69) Pulse Ox 100 98 O2 Delivery Room Air Room Air Room Air Room Air 06/13/18 06/13/18 06/13/18 06/13/18 03:35 07:00 08:00 11:33 Temp 98.0 98.4 98.4 98.0 98.4 98.4 Pulse 73 78 78 Resp 16 18 18 B/P (MAP) 130/57 (81) 106/55 (72) 120/55 (76) Pulse Ox 94 96 96 O2 Delivery Room Air Room Air Room Air Room Air O2 Flow Rate 2.0 Intake and Output 06/12/18 06/12/18 06/13/18 14:59 22:59 06:59 Intake Total 800 ml Output Total 215 ml 150 ml 750 ml Balance -215 ml -150 ml 50 ml Nutrition Consultation Dietary Evaluation: Recommendations by RD: Protein supplementation Comments: REC liberalize diet to regular to allow pt more food options REC Ensure TID Expected Outcomes/Goals: PO intake to meet >75% est needs Malnutrition Findings: Food and Nutrition Intake (Sev: <50% est energy req 5days Body Fat Depletion (Non Severe: Mild Depletion Weight Status: Appropriate BRUNO CARLTON MD Jun 13, 2018 13:48
--- NOTE | 2018-06-13 13:48 | PDOC ---
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 Generalized weakness since 06/11/18. Metabolic encephalopathy. Lethargy. Confusion. 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 Fall. DM. HTN. UTI. RECOMMENDATIONS/PLAN: Continue ASA 300 mg Rectal daily, change to PO when can swallow. Lipitor 20 mg HS if can swallow. Keep good hydration. Treat medical diseases. OT/PT. Rehab. Discussed with her son and grand-daughter in great detail and showed them MRI findings on 06/11 and further discussions on 06/12. Tried to transfer to [facility], but [facility] declined transfer on 06/11/18 due to no indication for endovascular treatment nor has other offers. MRI w/o contrast on 06/11/18 showed large right hemisphere infarct on DWI, FLARE , and other imaging. Carotid A US + Doppler: No high grade stenosis. Echo: Unremarkable, refer to reports. HISTORY OF THE PRESENT ILLNESS: This is an 88-y-old AA female patent with history of HTN and DM per her son was noted MS changes by family on 06/10/18. Patient was at home when she tried to stand up off couch and became very weak and fell. Patient reportedly had struck her head but had no loss of consciousness. She was last known normal on 06/09/18 as family stated on 06/10/18 that the previous night patient was normal but she was very confused noted by family on 06/10/18. Patient was brought to the ER of [facility] with complaints of generalized weakness. Neurology was requested for consultation on 06/11/18 and further evaluation revealed a large right MCA territory infarct. Her son stated that he saw his mother in bed about 6:00 am on 06/10/18, but no information about her condition during sleep that night. PAST MEDICAL HISTORY: HTN. DM. PAST SURGERY HISTORY: No major surgery recently. ALLERGY: Penicillins (Verified Allergy, Intermediate, 06/10/18) MEDICATIONS: Refer to [facility] FAMILY HISTORY: Non contributory. SOCIAL HISTORY: Lives with her son and grand children at home. Unknown her status of smoking, drinking, and illicit drug use. REVIEW OF SYSTEMS: Constitutional: No malnutrition, weight loss, cachexia. Head: No traumatic brain or head injury. Skin: No edema, or rash. Ear: No infection. Eyes: No vision loss or color blindness. Nose: No bleeding or purulent discharges. Hearing: Hearing decrease. Neck: No injury. Breast: No history of cancer, masses,or discharges. Cardiac: HTN, HLD. Pulmonary: No COPD. GI: No GI ulcer, GI bleeding. Urinary/genital: UTI. Endocrinologic: No cousin face, craniofacial dysmorphism, polydactyly. Skeletomuscular: Generalized weakness. Neurological: see HP. Psychiatric: Denies drug use/abuse. Otherwise, not -sccjh review of systems. PHYSICAL EXAMINATION: General appearance is in subacute distress. HEENT: Normocephalic and nontraumatic. Eyes, nose, ears, and throat are unremarkable. Neck is supple. No lymphadenopathy. No crepitus. Cardiovascular: S1, S2, regular rate and rhythm. Pulmonary: Mildly decreased to auscultation bilaterally. Abdomen: Bowel sounds are positive. Extremities: No rash, lesions, or edema. No restriction of range of motion NEUROLOGICAL EXAMINATION: Drowsiness. Not oriented to time, place and person. PERRL. Able to see fingers on 06/13/18. EOMI not elicited due to not follow commands.. CN: no acute focal findings at this time. Muscle tone: Fluctuated. Muscle strength: 4- left UE, 5 right UE. Movements in LE observed. DTR: 1-2 Plantar reflex: Neutral response bilaterally Gait: Unable to walk. Sensory exam: Decreased to temperature, light touch and vibration sense in left UE and LE. Not able to access cerebellar signs. F-T-N test not performed due to not follow commands. Objective Objective Vital Signs Date Time Temp Pulse Resp B/P (MAP) Pulse Ox O2 Delivery O2 Flow Rate FiO2 06/13/18 11:33 98.4 78 18 120/55 (76) 96 Room Air 98.4 06/13/18 08:00 2.0 Intake and Output 06/13/18 07:00 Intake Total 800 ml Output Total 1085 ml Balance -285 ml Blood Product IV Normal Saline Flush 800 ml Output Urine Total 1085 ml Vitals Signs Vitals VS - Last 72 Hours, by Label Date Time Temp Pulse Resp B/P (MAP) Pulse Ox O2 Delivery O2 Flow Rate FiO2 06/13/18 11:33 98.4 78 18 120/55 (76) 96 Room Air 98.4 06/13/18 08:00 Room Air 2.0 06/13/18 07:00 98.4 78 18 106/55 (72) 96 Room Air 98.4 06/13/18 03:35 98.0 73 16 130/57 (81) 94 Room Air 98.0 06/12/18 20:06 98.1 59 16 102/53 (69) 98 Room Air 98.1 06/12/18 20:00 Room Air 06/12/18 16:00 98.2 77 21 107/70 (82) 100 Room Air 98.2 06/12/18 16:00 Room Air 06/12/18 12:00 98.2 63 14 95/50 (65) 100 Room Air 98.2 06/12/18 12:00 Room Air 06/12/18 11:00 64 18 114/43 (66) 100 Room Air 06/12/18 10:00 73 20 121/49 (73) 100 Room Air 06/12/18 09:00 87 32 121/59 (79) 100 Room Air 06/12/18 08:00 Room Air 06/12/18 08:00 98.1 69 9 119/54 (75) 100 Room Air 98.1 06/12/18 07:00 66 18 111/52 (71) 99 Room Air Laboratory Laboratory Laboratory Tests Test 06/12/18 16:58 06/12/18 19:55 06/13/18 07:10 06/13/18 07:55 Glucose (Fingerstick) 96 mg/dL (70-99) 67 mg/dL (70-99) 116 mg/dL (70-99) White Blood Count 5.4 x10^3/uL (4.0-11.0) Red Blood Count 3.99 x10^6/uL (3.50-5.40) Hemoglobin 11.3 g/dL (12.0-15.5) Hematocrit 34.6 % (36.0-47.0) Mean Corpuscular Volume 87 fL (79-100) Mean Corpuscular Hemoglobin 28 pg (25-35) Mean Corpuscular Hemoglobin Concent 33 g/dL (31-37) Red Cell Distribution Width 14.5 % (11.5-14.5) Platelet Count 384 x10^3/uL (140-400) Neutrophils (%) (Auto) 63 % (31-73) Lymphocytes (%) (Auto) 21 % (24-48) Monocytes (%) (Auto) 12 % (0-9) Eosinophils (%) (Auto) 3 % (0-3) Basophils (%) (Auto) 1 % (0-3) Neutrophils # (Auto) 3.4 x10^3uL (1.8-7.7) Lymphocytes # (Auto) 1.2 x10^3/uL (1.0-4.8) Monocytes # (Auto) 0.6 x10^3/uL (0.0-1.1) Eosinophils # (Auto) 0.1 x10^3/uL (0.0-0.7) Basophils # (Auto) 0.0 x10^3/uL (0.0-0.2) Sodium Level 138 mmol/L (136-145) Potassium Level 3.6 mmol/L (3.5-5.1) Chloride Level 103 mmol/L (98-107) Carbon Dioxide Level 26 mmol/L (21-32) Anion Gap 9 (6-14) Blood Urea Nitrogen 9 mg/dL (7-20) Creatinine 0.8 mg/dL (0.6-1.0) Estimated GFR (Cockcroft-Gault) 81.9 Glucose Level 108 mg/dL (70-99) Calcium Level 8.6 mg/dL (8.5-10.1) Test 06/13/18 11:15 Glucose (Fingerstick) 173 mg/dL (70-99) Microbiology 06/10/18 Urine Culture - Preliminary, Resulted 06/10/18 Urine Culture Result 1 (AMAIRANI) - Preliminary, Resulted Medication Medications Current Medications Atorvastatin Calcium (Lipitor) 20 mg QHS PO ; Start 06/12/18 at 21:00 Ciprofloxacin (Cipro) 250 mg BID PO ; Start 06/13/18 at 21:00 Lactobacillus Rhamnosus (Culturelle) 1 cap BID PO ; Start 06/12/18 at 21:00 Comment Review of Relevant I have reviewed the following items maria teresa (where applicable) has been applied. LALO GONZALEZ MD Jun 13, 2018 13:48
[2018-06-13 14:59] VITALS: BP 112/59
[2018-06-13] MEDS: AMINO AC 3%/ELECTROLYTE/GLYCER 1,000 ML IV SCH (14:59)
[2018-06-13] MEDS: DRONABINOL 2.5 MG CAPSULE. PO SCH (16:30)
[2018-06-13 19:48] VITALS: BP 106/56
[2018-06-13] MEDS: CIPROFLOXACIN 400MG PREMIX 200 ML IV SCH (21:00)
[2018-06-13] MEDS ORDERED: CIPROFLOXACIN HCL 250 MG TABLET. PO SCH (21:00)
[2018-06-13] MEDS: ATORVASTATIN CALCIUM 20 MG TABLET PO SCH (21:55)
[2018-06-13 23:36] VITALS: BP 97/56
[2018-06-14] MEDS: AMINO AC 3%/ELECTROLYTE/GLYCER 1,000 ML IV SCH ×2 (02:15→13:58)
[2018-06-14 03:59] VITALS: BP 110/54
[2018-06-14 04:53] LABS: BASO % 1 % (0-3); EOS # 0.2 x10^3/uL (0.0-0.7); EOS % 3 % (0-3); HEMATOCRIT 35.7 % (36.0-47.0); HEMOGLOBIN 11.6 g/dL (12.0-15.5); LYMPH # 1.2 x10^3/uL (1.0-4.8); LYMPH % 22 % (24-48); MEAN CORPUSCULAR HEMOGLOBIN 28 pg (25-35); MEAN CORPUSCULAR HGB CONC 33 g/dL (31-37); MEAN CORPUSCULAR VOLUME 87 fL (79-100); MONO # 0.8 x10^3/uL (0.0-1.1); MONO % 14 % (0-9); NEUT # 3.2 x10^3uL (1.8-7.7); NEUT % 60 % (31-73); PLATELET COUNT 364 x10^3/uL (140-400); RED BLOOD COUNT 4.13 x10^6/uL (3.50-5.40); WHITE BLOOD COUNT 5.3 x10^3/uL (4.0-11.0)
[2018-06-14 05:11] LABS: CREATININE 0.9 mg/dL (0.6-1.0); GFR 71.5; POTASSIUM 3.6 mmol/L (3.5-5.1)
[2018-06-14 07:55] VITALS: BP 141/63
[2018-06-14] MEDS ORDERED: ASPIRIN 325 MG TABLET PO SCH (08:00)
[2018-06-14] MEDS: INSULIN LISPRO 300 UNITS/3 ML INSULN.PEN. SQ SCH ×2 (08:00→12:00)
[2018-06-14] MEDS: CIPROFLOXACIN 400MG PREMIX 200 ML IV SCH (09:00)
[2018-06-14] MEDS: LACTOBACILLUS RHAMNOSUS GG 1 CAPSULE. PO SCH (09:33)
[2018-06-14] MEDS: SENNOSIDES/DOCUSATE 8.6/50MG TABLET. PO SCH (09:33)
[2018-06-14] MEDS ORDERED: ATOR20TA58 PO (10:57)
[2018-06-14] MEDS ORDERED: DRON2.5C2 PO (10:57)
[2018-06-14] MEDS ORDERED: ASPI325T8 PO (10:57)
--- NOTE | 2018-06-14 10:58 | DISCH ---
DISCHARGE DISCHARGE INFORMATION: DISCHARGE DATE: Jun 14, 2018 FINAL DIAGNOSIS Problems Medical Problems: (1) Altered mental status Status: Acute (2) UTI (urinary tract infection) Status: Acute CONDITION ON DISCHARGE: Stable CODE STATUS: Code Status: Full SENIOR LIVING: SNF STAY <30 DAYS: Yes HOSPICE: HOSPICE: No HOSPICE EVAL & TREAT: No LTAC: ADMIT TO LTAC: No POST DISCHARGE ORDERS: ACTIVITY ORDERS: Progressive ambulation WEIGHT BEARING STATUS: Non weight bearing DIET AFTER DISCHARGE: Regular CHECKS AFTER DISCHARGE: CHECKS AFTER DISCHARGE: Check blood press - daily FOLLOW-UP: PHYSICIAN FOLLOW-UP: ff up DR Paulino neurologist in 4 weeks or on SNU dc TREATMENT/EQUIPMENT ORDERS: ADAPTIVE EQUIPMENT NEEDED: Four wheeled walker Physical Therapy For: Evalulation/Treatment Occupational Therapy For: Evaluation/Treatment Speech Language Pathology For: Swallow Cognition DISCHARGE MEDICATIONS: Home Meds Active Scripts Dronabinol (DRONABINOL) 2.5 Mg Capsule, 2.5 MG PO BIDACLD for inc appetite MDD 1 , #60 CAP Prov:BRUNO CARLTON MD 06/14/18 Aspirin (ASPIRIN) 325 Mg Tablet, 325 MG PO [id number] for acute CVA MDD 1 for 30 Days, #60 TAB Prov:BRUNO CARLTON MD 06/14/18 Atorvastatin Calcium (ATORVASTATIN CALCIUM) 20 Mg Tablet, 20 MG PO QHS for cva MDD 1, #30 TAB Prov:BRUNO CARLTON MD 06/14/18 Reported Medications Info (NO KNOWN MEDICATIONS PRIOR TO ADMISSTION) Each, 1 EACH MC 1X for family unsure about meds, EACH 06/11/18 BRUNO CARLTON MD Jun 14, 2018 10:58
--- NOTE | 2018-06-14 11:02 | PDOC3 ---
Discharge Summary Visit Information Date of Admission: Jun 10, 2018 Date of Discharge: Jun 14, 2018 Admitting Diagnosis Comment: Large right hemisphere infarct. Metabolic encephalopathy Lethargy Confusion DM HTN Incidental UTI DYsphagia Poor PO FULL CODE Final Diagnosis Problems Medical Problems: (1) Altered mental status Status: Acute (2) UTI (urinary tract infection) Status: Acute Brief Hospital Course Allergies Allergies Coded Allergies Type Severity Reaction Last Updated Verified Penicillins Allergy Intermediate 06/10/18 Yes Vital Signs Vital Signs Date Time Temp Pulse Resp B/P (MAP) Pulse Ox O2 Delivery O2 Flow Rate FiO2 06/14/18 08:00 Room Air 06/14/18 07:55 98.3 70 18 141/63 (89) 100 98.3 06/13/18 20:06 2.0 Lab Results Laboratory Tests Test 06/12/18 11:52 06/12/18 16:58 06/12/18 19:55 06/13/18 07:10 Glucose (Fingerstick) 115 mg/dL (70-99) 96 mg/dL (70-99) 67 mg/dL (70-99) White Blood Count 5.4 x10^3/uL (4.0-11.0) Red Blood Count 3.99 x10^6/uL (3.50-5.40) Hemoglobin 11.3 g/dL (12.0-15.5) Hematocrit 34.6 % (36.0-47.0) Mean Corpuscular Volume 87 fL (79-100) Mean Corpuscular Hemoglobin 28 pg (25-35) Mean Corpuscular Hemoglobin Concent 33 g/dL (31-37) Red Cell Distribution Width 14.5 % (11.5-14.5) Platelet Count 384 x10^3/uL (140-400) Neutrophils (%) (Auto) 63 % (31-73) Lymphocytes (%) (Auto) 21 % (24-48) Monocytes (%) (Auto) 12 % (0-9) Eosinophils (%) (Auto) 3 % (0-3) Basophils (%) (Auto) 1 % (0-3) Neutrophils # (Auto) 3.4 x10^3uL (1.8-7.7) Lymphocytes # (Auto) 1.2 x10^3/uL (1.0-4.8) Monocytes # (Auto) 0.6 x10^3/uL (0.0-1.1) Eosinophils # (Auto) 0.1 x10^3/uL (0.0-0.7) Basophils # (Auto) 0.0 x10^3/uL (0.0-0.2) Sodium Level 138 mmol/L (136-145) Potassium Level 3.6 mmol/L (3.5-5.1) Chloride Level 103 mmol/L (98-107) Carbon Dioxide Level 26 mmol/L (21-32) Anion Gap 9 (6-14) Blood Urea Nitrogen 9 mg/dL (7-20) Creatinine 0.8 mg/dL (0.6-1.0) Estimated GFR (Cockcroft-Gault) 81.9 Glucose Level 108 mg/dL (70-99) Calcium Level 8.6 mg/dL (8.5-10.1) Test 06/13/18 07:55 06/13/18 11:15 06/13/18 16:33 06/13/18 20:53 Glucose (Fingerstick) 116 mg/dL (70-99) 173 mg/dL (70-99) 158 mg/dL (70-99) 158 mg/dL (70-99) Test 06/14/18 03:45 06/14/18 07:53 White Blood Count 5.3 x10^3/uL (4.0-11.0) Red Blood Count 4.13 x10^6/uL (3.50-5.40) Hemoglobin 11.6 g/dL (12.0-15.5) Hematocrit 35.7 % (36.0-47.0) Mean Corpuscular Volume 87 fL (79-100) Mean Corpuscular Hemoglobin 28 pg (25-35) Mean Corpuscular Hemoglobin Concent 33 g/dL (31-37) Red Cell Distribution Width 15.0 % (11.5-14.5) Platelet Count 364 x10^3/uL (140-400) Neutrophils (%) (Auto) 60 % (31-73) Lymphocytes (%) (Auto) 22 % (24-48) Monocytes (%) (Auto) 14 % (0-9) Eosinophils (%) (Auto) 3 % (0-3) Basophils (%) (Auto) 1 % (0-3) Neutrophils # (Auto) 3.2 x10^3uL (1.8-7.7) Lymphocytes # (Auto) 1.2 x10^3/uL (1.0-4.8) Monocytes # (Auto) 0.8 x10^3/uL (0.0-1.1) Eosinophils # (Auto) 0.2 x10^3/uL (0.0-0.7) Basophils # (Auto) 0.0 x10^3/uL (0.0-0.2) Sodium Level 137 mmol/L (136-145) Potassium Level 3.6 mmol/L (3.5-5.1) Chloride Level 101 mmol/L (98-107) Carbon Dioxide Level 26 mmol/L (21-32) Anion Gap 10 (6-14) Blood Urea Nitrogen 11 mg/dL (7-20) Creatinine 0.9 mg/dL (0.6-1.0) Estimated GFR (Cockcroft-Gault) 71.5 Glucose Level 131 mg/dL (70-99) Calcium Level 9.0 mg/dL (8.5-10.1) Glucose (Fingerstick) 135 mg/dL (70-99) Laboratory Tests Test 06/13/18 11:15 06/13/18 16:33 06/13/18 20:53 06/14/18 03:45 Glucose (Fingerstick) 173 mg/dL (70-99) 158 mg/dL (70-99) 158 mg/dL (70-99) White Blood Count 5.3 x10^3/uL (4.0-11.0) Red Blood Count 4.13 x10^6/uL (3.50-5.40) Hemoglobin 11.6 g/dL (12.0-15.5) Hematocrit 35.7 % (36.0-47.0) Mean Corpuscular Volume 87 fL (79-100) Mean Corpuscular Hemoglobin 28 pg (25-35) Mean Corpuscular Hemoglobin Concent 33 g/dL (31-37) Red Cell Distribution Width 15.0 % (11.5-14.5) Platelet Count 364 x10^3/uL (140-400) Neutrophils (%) (Auto) 60 % (31-73) Lymphocytes (%) (Auto) 22 % (24-48) Monocytes (%) (Auto) 14 % (0-9) Eosinophils (%) (Auto) 3 % (0-3) Basophils (%) (Auto) 1 % (0-3) Neutrophils # (Auto) 3.2 x10^3uL (1.8-7.7) Lymphocytes # (Auto) 1.2 x10^3/uL (1.0-4.8) Monocytes # (Auto) 0.8 x10^3/uL (0.0-1.1) Eosinophils # (Auto) 0.2 x10^3/uL (0.0-0.7) Basophils # (Auto) 0.0 x10^3/uL (0.0-0.2) Sodium Level 137 mmol/L (136-145) Potassium Level 3.6 mmol/L (3.5-5.1) Chloride Level 101 mmol/L (98-107) Carbon Dioxide Level 26 mmol/L (21-32) Anion Gap 10 (6-14) Blood Urea Nitrogen 11 mg/dL (7-20) Creatinine 0.9 mg/dL (0.6-1.0) Estimated GFR (Cockcroft-Gault) 71.5 Glucose Level 131 mg/dL (70-99) Calcium Level 9.0 mg/dL (8.5-10.1) Test 06/14/18 07:53 Glucose (Fingerstick) 135 mg/dL (70-99) Brief Hospital Course Ms. Johansen is a 88 old Citizen [place] Citizen [place] female who lives at home, otherwise previously healthy given stated age, admitted because of confusion and fall at home. 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 Did not receive TPA for a variety of legitimate reasons. Transferred out of ICU stable on the sixth floor/neuro floor. Started on aspirin. Was not on aspirin prior to admission. Blood pressure was always stable. Not a diabetic. Comanage with neurology, started aspirin 325 once a day along with statin for the stroke. Echocardiogram shows good EF. A bilateral carotid ultrasound shows 0-50% stenosis but no-hemodynamic stenosis that needs surgical intervention Course remarkable for some poor poor by mouth intake, needed ProcalAmine overnight and needed start Marinol 2.5 again by mouth twice a day as appetite stimulant. study assistant likewise on board,. Hence 3 new meds, Including Marinol 2.5 twice a day, aspirin 325 once a day and Lipitor 20 daily at bedtime Discharge disposition to [facility] Discharge discharge is follow-up neurology Dr. tuttle 4 weeks time or upon snu Discharge dc 31 mins FULL Code for now - dw son/DPOA Discharge Information Condition at Discharge: Improved, Stable Follow Up: Weeks (4 weeks neuro) Disposition/Orders: Other (snu) Scheduled Aspirin (Aspirin) 325 Mg Tablet, 325 MG PO DAILYWBKFT for acute CVA MDD 1 for 30 Days, #60 Prescribed by: BRUNO CARLTON on 06/14/18 1057 Atorvastatin Calcium (Atorvastatin Calcium) 20 Mg Tablet, 20 MG PO QHS for cva MDD 1, #30 Prescribed by: BRUNO CARLTON on 06/14/18 1057 Dronabinol (Dronabinol) 2.5 Mg Capsule, 2.5 MG PO BIDACLD for inc appetite MDD 1 , #60 Prescribed by: BRUNO CARLTON on 06/14/18 1057 Info (No Known Medications Prior To Admisstion) Each, 1 EACH 1X for family unsure about meds, (Reported) Entered as Reported by: TESSY STRATTON on 06/11/18 0441 Last Taken: UNKNOWN on Unknown Date & Time Last Action: Reviewed on 1350 by BRUNO MAI MD Jun 14, 2018 11:02
[2018-06-14 11:06] VITALS: BP 114/56
--- NOTE | 2018-06-14 11:44 | NUR ---
MARLY following. Insurance has approved SNU. MARLY phoned and faxed orders to [facility]. Pt will transport via facility w/c van between [phone]. MARLY phoned pt's son, Aubrey and left a voice mail regarding plan. Pt aware of plan and agreeable. Packet on chart. ABHIJIT HAMMER.
[2018-06-14] MEDS ORDERED: CIPROFLOXACIN HCL 250 MG TABLET. PO ONE (12:30)
[2018-06-14] MEDS: DRONABINOL 2.5 MG CAPSULE. PO SCH (12:49)
--- NOTE | 2018-06-14 14:04 | NUR ---
attempted to call report to [facility] at 1300 and 1320. First call rang with no answer. Second call left message for nurse taking patient to call back for report, other staff memeber stated the nurse was at lunch and would call back when finished.
--- NOTE | 2018-06-14 14:43 | NUR ---
Discharge Note: GAYATHRI ZHANG [address] [place] [address] Discharge instructions and discharge home medications reviewed with Other facility and a copy given. All questions have been answered and understanding verbalized. The following instructions and handouts were given: Patient information including diet, activity, medication list and follow up instructions sent to [facility]. Gave information for nurse to call this nurse for report on patient, as had left information before at 1325 and attempted to call previously at 1300 with no answer from facility. Discontinued lines and drains: Peripheral IV discontinued on previous date with catheter intact. Patient discharged to Long-Term Facility with Self via Wheelchair
--- NOTE | 2018-06-14 15:12 | PDOC ---
PROGRESS NOTES Assessment Problems Medical Problems: (1) Altered mental status Status: Acute (2) UTI (urinary tract infection) Status: Acute Subacute large right hemisphere infarct involving right parietal, temporal, occipital lobes and cerebellum. Generalized weakness since 06/11/18. Metabolic encephalopathy. Lethargy. Confusion. 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 Fall. DM. HTN. UTI. Plan Continue ASA 300 mg Rectal daily, change to PO when can swallow. Lipitor 20 mg HS if she can swallow. I saw the patient before discharge, she has now been discharged, follow-up with neurology as needed Subjective No complaints Objective Vital Signs Date Time Temp Pulse Resp B/P (MAP) Pulse Ox O2 Delivery O2 Flow Rate FiO2 06/14/18 11:06 98.3 80 18 114/56 (75) 96 Room Air 98.3 06/13/18 20:06 2.0 Intake and Output 06/14/18 07:00 Output Total 650 ml Balance -650 ml Output Urine Total 650 ml PHYSICAL EXAM Alert. Oriented to person. PERRL. EOMI. CN: left field cut, left central VII, no other focal findings. Muscle tone: normal. Muscle strength: 4/5 right, 3/5 left DTR: 1+ Plantar reflex: flexor Gait: not examined in bed. Sensory exam: no abnormal findings. No cerebellar signs elicited. Review of Relevant I have reviewed the following items maria teresa (where applicable) has been applied. Labs Laboratory Tests Test 06/12/18 16:58 06/12/18 19:55 06/13/18 07:10 06/13/18 07:55 Glucose (Fingerstick) 96 mg/dL (70-99) 67 mg/dL (70-99) 116 mg/dL (70-99) White Blood Count 5.4 x10^3/uL (4.0-11.0) Red Blood Count 3.99 x10^6/uL (3.50-5.40) Hemoglobin 11.3 g/dL (12.0-15.5) Hematocrit 34.6 % (36.0-47.0) Mean Corpuscular Volume 87 fL (79-100) Mean Corpuscular Hemoglobin 28 pg (25-35) Mean Corpuscular Hemoglobin Concent 33 g/dL (31-37) Red Cell Distribution Width 14.5 % (11.5-14.5) Platelet Count 384 x10^3/uL (140-400) Neutrophils (%) (Auto) 63 % (31-73) Lymphocytes (%) (Auto) 21 % (24-48) Monocytes (%) (Auto) 12 % (0-9) Eosinophils (%) (Auto) 3 % (0-3) Basophils (%) (Auto) 1 % (0-3) Neutrophils # (Auto) 3.4 x10^3uL (1.8-7.7) Lymphocytes # (Auto) 1.2 x10^3/uL (1.0-4.8) Monocytes # (Auto) 0.6 x10^3/uL (0.0-1.1) Eosinophils # (Auto) 0.1 x10^3/uL (0.0-0.7) Basophils # (Auto) 0.0 x10^3/uL (0.0-0.2) Sodium Level 138 mmol/L (136-145) Potassium Level 3.6 mmol/L (3.5-5.1) Chloride Level 103 mmol/L (98-107) Carbon Dioxide Level 26 mmol/L (21-32) Anion Gap 9 (6-14) Blood Urea Nitrogen 9 mg/dL (7-20) Creatinine 0.8 mg/dL (0.6-1.0) Estimated GFR (Cockcroft-Gault) 81.9 Glucose Level 108 mg/dL (70-99) Calcium Level 8.6 mg/dL (8.5-10.1) Test 06/13/18 11:15 06/13/18 16:33 06/13/18 20:53 06/14/18 03:45 Glucose (Fingerstick) 173 mg/dL (70-99) 158 mg/dL (70-99) 158 mg/dL (70-99) White Blood Count 5.3 x10^3/uL (4.0-11.0) Red Blood Count 4.13 x10^6/uL (3.50-5.40) Hemoglobin 11.6 g/dL (12.0-15.5) Hematocrit 35.7 % (36.0-47.0) Mean Corpuscular Volume 87 fL (79-100) Mean Corpuscular Hemoglobin 28 pg (25-35) Mean Corpuscular Hemoglobin Concent 33 g/dL (31-37) Red Cell Distribution Width 15.0 % (11.5-14.5) Platelet Count 364 x10^3/uL (140-400) Neutrophils (%) (Auto) 60 % (31-73) Lymphocytes (%) (Auto) 22 % (24-48) Monocytes (%) (Auto) 14 % (0-9) Eosinophils (%) (Auto) 3 % (0-3) Basophils (%) (Auto) 1 % (0-3) Neutrophils # (Auto) 3.2 x10^3uL (1.8-7.7) Lymphocytes # (Auto) 1.2 x10^3/uL (1.0-4.8) Monocytes # (Auto) 0.8 x10^3/uL (0.0-1.1) Eosinophils # (Auto) 0.2 x10^3/uL (0.0-0.7) Basophils # (Auto) 0.0 x10^3/uL (0.0-0.2) Sodium Level 137 mmol/L (136-145) Potassium Level 3.6 mmol/L (3.5-5.1) Chloride Level 101 mmol/L (98-107) Carbon Dioxide Level 26 mmol/L (21-32) Anion Gap 10 (6-14) Blood Urea Nitrogen 11 mg/dL (7-20) Creatinine 0.9 mg/dL (0.6-1.0) Estimated GFR (Cockcroft-Gault) 71.5 Glucose Level 131 mg/dL (70-99) Calcium Level 9.0 mg/dL (8.5-10.1) Test 06/14/18 07:53 06/14/18 12:03 Glucose (Fingerstick) 135 mg/dL (70-99) 173 mg/dL (70-99) Laboratory Tests Test 06/13/18 16:33 06/13/18 20:53 06/14/18 03:45 06/14/18 07:53 Glucose (Fingerstick) 158 mg/dL (70-99) 158 mg/dL (70-99) 135 mg/dL (70-99) White Blood Count 5.3 x10^3/uL (4.0-11.0) Red Blood Count 4.13 x10^6/uL (3.50-5.40) Hemoglobin 11.6 g/dL (12.0-15.5) Hematocrit 35.7 % (36.0-47.0) Mean Corpuscular Volume 87 fL (79-100) Mean Corpuscular Hemoglobin 28 pg (25-35) Mean Corpuscular Hemoglobin Concent 33 g/dL (31-37) Red Cell Distribution Width 15.0 % (11.5-14.5) Platelet Count 364 x10^3/uL (140-400) Neutrophils (%) (Auto) 60 % (31-73) Lymphocytes (%) (Auto) 22 % (24-48) Monocytes (%) (Auto) 14 % (0-9) Eosinophils (%) (Auto) 3 % (0-3) Basophils (%) (Auto) 1 % (0-3) Neutrophils # (Auto) 3.2 x10^3uL (1.8-7.7) Lymphocytes # (Auto) 1.2 x10^3/uL (1.0-4.8) Monocytes # (Auto) 0.8 x10^3/uL (0.0-1.1) Eosinophils # (Auto) 0.2 x10^3/uL (0.0-0.7) Basophils # (Auto) 0.0 x10^3/uL (0.0-0.2) Sodium Level 137 mmol/L (136-145) Potassium Level 3.6 mmol/L (3.5-5.1) Chloride Level 101 mmol/L (98-107) Carbon Dioxide Level 26 mmol/L (21-32) Anion Gap 10 (6-14) Blood Urea Nitrogen 11 mg/dL (7-20) Creatinine 0.9 mg/dL (0.6-1.0) Estimated GFR (Cockcroft-Gault) 71.5 Glucose Level 131 mg/dL (70-99) Calcium Level 9.0 mg/dL (8.5-10.1) Test 06/14/18 12:03 Glucose (Fingerstick) 173 mg/dL (70-99) Microbiology 06/10/18 Urine Culture - Preliminary, Resulted 06/10/18 Urine Culture Result 1 (AMAIRANI) - Preliminary, Resulted Medications Current Medications Sodium Chloride 500 ml @ 500 mls/hr Q1H IV Last administered on 06/10/18at 17: 51; Start 06/10/18 at 16:00; Stop 06/10/18 at 17:52; Status DC Levofloxacin (Levaquin) 500 mg 1X ONCE PO Last administered on 06/10/18at 17:51 ; Start 06/10/18 at 17:30; Stop 06/10/18 at 17:31; Status DC Acetaminophen (Tylenol) 650 mg 1X ONCE PO Last administered on 06/10/18at 17:51 ; Start 06/10/18 at 17:45; Stop 06/10/18 at 17:46; Status DC Acetaminophen (Tylenol) 650 mg 1X ONCE PO ; Start 06/10/18 at 17:45; Stop 06/10 at 17:46; Status UNV Sodium Chloride 1,000 ml @ 100 mls/hr Q10H IV ; Start 06/10/18 at 18:29; Stop 06/11/18 at 11:35; Status DC Ringer's Solution 1,000 ml @ 100 mls/hr Q10H IV Last administered on at 19:54; Start 06/10/18 at 21:00; Stop 06/13/18 at 11:17; Status DC Ondansetron HCl (Zofran) 4 mg PRN Q6HRS PRN IV NAUSEA/VOMITING; Start 06/10/18 at 21:00; Stop 06/14/18 at 14:45; Status DC Senna/Docusate Sodium (Senna Plus) 1 tab BID PO Last administered on 06/14/18at 09:33; Start 06/10/18 at 21:00; Stop 06/14/18 at 14:45; Status DC Magnesium Hydroxide (Milk Of Magnesia) 2,400 mg PRN Q12HR PRN PO CONSTIPATION; Start 06/10/18 at 21:00; Stop 06/14/18 at 14:45; Status DC Ciprofloxacin/ Dextrose 100 ml @ 100 mls/hr Q12HR IV Last administered on 06/13at 10:03; Start 06/11/18 at 09:00; Stop 06/13/18 at 11:17; Status DC Insulin Human Lispro (HumaLOG) 0-5 UNITS TIDWMEALS SQ ; Start 06/11/18 at 08:00 ; Stop 06/14/18 at 14:45; Status DC Dextrose (Dextrose 50%-Water Syringe) 12.5 gm PRN Q15MIN PRN IV SEE COMMENTS Last administered on 06/12/18at 23:28; Start 06/10/18 at 21:30; Stop 06/14/18 at 14:45; Status DC Acetaminophen (Tylenol) 650 mg PRN Q6HRS PRN PO PAIN; Start 06/11/18 at 01:00; Stop 06/14/18 at 14:45; Status DC Ketorolac Tromethamine (Toradol 15mg Vial) 15 mg PRN Q8HRS PRN IV PAIN Last administered on 06/11/18at 06:05; Start 06/11/18 at 05:30; Stop 06/14/18 at 14:45 ; Status DC Lorazepam (Ativan) 0.5 mg 1X ONCE IV Last administered on 06/11/18at 14:45; Start 06/11/18 at 14:45; Stop 06/11/18 at 14:46; Status DC Lorazepam (Ativan) 2 mg 1X ONCE IV Last administered on 06/11/18at 15:45; Start 06/11/18 at 15:45; Stop 06/11/18 at 15:46; Status DC Aspirin (Aspirin) 300 mg DAILY DC Last administered on 06/13/18at 10:08; Start 06/11/18 at 17:20; Stop 06/13/18 at 13:50; Status DC Lactobacillus Rhamnosus (Culturelle) 1 cap BID PO Last administered on at 09:33; Start 06/12/18 at 21:00; Stop 06/14/18 at 14:45; Status DC Atorvastatin Calcium (Lipitor) 20 mg QHS PO Last administered on 06/13/18at 21: 55; Start 06/12/18 at 21:00; Stop 06/14/18 at 14:45; Status DC Ciprofloxacin (Cipro) 250 mg BID PO ; Start 06/13/18 at 21:00; Stop 06/13/18 at 21:00; Status DC Dronabinol (Marinol) 2.5 mg BIDACLD PO Last administered on 06/14/18at 12:49; Start 06/13/18 at 16:30; Stop 06/14/18 at 14:45; Status DC Ciprofloxacin/ Dextrose 200 ml @ 200 mls/hr Q12HR IV ; Start 06/13/18 at 21:00 ; Stop 06/14/18 at 11:57; Status DC Amino Acids/ Glycerin/ Electrolytes 1,000 ml @ 80 mls/hr [id number] IV Last administered on 06/13/18at 14:59; Start 06/13/18 at 13:45; Stop 06/14/18 at 14:45 ; Status DC Aspirin (Munir Aspirin) 325 mg DAILYWBKFT PO Last administered on 06/14/18at 09: 33; Start 06/14/18 at 08:00; Stop 06/14/18 at 14:45; Status DC Ciprofloxacin (Cipro) 250 mg 1X ONCE PO Last administered on 06/14/18at 12:49; Start 06/14/18 at 12:30; Stop 06/14/18 at 12:31; Status DC Ciprofloxacin (Cipro) 250 mg BID PO ; Start 06/14/18 at 21:00; Stop 06/14/18 at 21:00; Status DC Active Scripts Active Dronabinol 2.5 Mg Capsule 2.5 Mg PO BIDACLD MDD 1 Aspirin 325 Mg Tablet 325 Mg PO DAILYWBKFT MDD 1 30 Days Atorvastatin Calcium 20 Mg Tablet 20 Mg PO QHS MDD 1 Reported No Known Medications Prior To Admisstion (Info) Each 1 Each 1X Vitals/I & O Vital Sign - Last 24 Hours 06/13/18 06/13/18 06/13/18 06/14/18 19:48 20:06 23:36 03:59 Temp 97.6 97.7 97.8 97.6 97.7 97.8 Pulse 81 80 73 Resp 16 18 16 B/P (MAP) 106/56 (73) 97/56 (70) 110/54 (72) Pulse Ox 95 97 93 O2 Delivery Room Air Room Air Room Air Room Air O2 Flow Rate 2.0 06/14/18 06/14/18 06/14/18 07:55 08:00 11:06 Temp 98.3 98.3 98.3 98.3 Pulse 70 80 Resp 18 18 B/P (MAP) 141/63 (89) 114/56 (75) Pulse Ox 100 96 O2 Delivery Room Air Room Air Room Air Intake and Output 06/13/18 06/13/18 06/14/18 15:00 23:00 07:00 Output Total 350 ml 300 ml Balance -350 ml -300 ml ALEJO GOODWIN MD Jun 14, 2018 15:12
--- NOTE | 2018-06-14 15:30 | NUR ---
Francis HAMMER from [facility] and given report on patient.
[2018-06-14] MEDS ORDERED: CIPROFLOXACIN HCL 250 MG TABLET. PO SCH (21:00)
== END 2018-06-14 14:45 | DRG 64 ==
LOC: ER 15:00 → 4 NORTH 18:22 → EDBD 18:22 → 1 WEST ICU 06-11 13:59 → 6 SOUTH 06-12 19:20
PROVIDERS: ADMIT Internal Medicine; ATTEND Internal Medicine
DX: I63.9 Cerebral infarction, unspecified (principal); G93.41 Metabolic encephalopathy; N39.0 Urinary tract infection, site not specified; E11.51 Type 2 diabetes mellitus with diabetic peripheral angiopathy without gangrene; Z82.49 Family history of ischemic heart disease and other diseases of the circulatory system; I10 Essential (primary) hypertension; H47.619 Cortical blindness, unspecified side of brain; S09.90XA Unspecified injury of head, initial encounter; E78.5 Hyperlipidemia, unspecified; G31.9 Degenerative disease of nervous system, unspecified; G93.0 Cerebral cysts; H54.7 Unspecified visual loss; W18.39XA Other fall on same level, initial encounter; J32.9 Chronic sinusitis, unspecified; Z79.82 Long term (current) use of aspirin; Z79.899 Other long term (current) drug therapy; Z88.0 Allergy status to penicillin; Z91.81 History of falling; Z17.1 Estrogen receptor negative status [ER-]; Y93.89 Activity, other specified; Y92.098 Other place in other non-institutional residence as the place of occurrence of the external cause; Y99.8 Other external cause status
CPT/HCPCS: 36415; 70450; 70551; 71045; 73562; 80048; 80053; 80061; 81001; 82607; 82962; 83735; 84443; 84484; 85025; 87086; 87186; 87641; 93005; 93306; 93880; 96360; J0744; J1815; J1885; J2060; J7040; J7042; J7120; Q0167; 92526; 92610; 97110; 97530; 99285-25; G0378